=== PATIENT | male | born 1945 | race Caucasian/White ===

== ENCOUNTER 2021-01-03 20:01 | Inpatient (IN) | payer BC, MEDICARE ==
[~2021-01-03] VITALS: Ht 160 cm; Wt 70.0 kg
[~2021-01-03 20:01] MED LIST: ASPI-611 PO; BRIM5DRO16 EACHEYE; GABA-532 PO; LANTUS SUBCUT; LISI5TAB22 PO; PIOG15TA8 PO
[2021-01-03 23:10] VITALS: BP 132/52
--- NOTE | 2021-01-03 23:10 | NUR ---
Pt arrived via ambulance gurney A and Ox4, vss, on 15l nrb and 5l nc. vss, oriented to room and medication plan and covid lung positions. Dr. Nash paged for notice of arrival. Call light given to pt.
[2021-01-03] MEDS ORDERED: ondansetron/PF 4mg/2ml inj IV PRN (23:45)
[2021-01-03] MEDS: normal saline 1000ml 1,000 ML IV SCH (23:45)
[2021-01-03] MEDS ORDERED: diphenhydrAMINE 50 mg/ml inj IV PRN (23:45)
[2021-01-03] MEDS ORDERED: acetaminophen 650mg rectal suppository RC PRN (23:45)
[2021-01-03] MEDS ORDERED: mag hydrox/Alum hydrox/simeth 30ml oral suspension PO PRN (23:45)
[2021-01-03] MEDS ORDERED: morphine 2 MG/ML inj. syringe IV PRN ×2 (23:45)
[2021-01-03] MEDS ORDERED: diphenhydrAMINE 25mg capsule PO PRN (23:45)
[2021-01-03] MEDS ORDERED: ALBUTEROL INHALER 1 PUFF/90 MCG INHALER IH PRN (23:45)
[2021-01-03] MEDS ORDERED: HYDROcodone/acetaminophen 5mg/325mg tablet PO PRN (23:45)
[2021-01-03] MEDS ORDERED: bisacodyl 10mg suppository rectal RC PRN (23:45)
[2021-01-03] MEDS ORDERED: acetaminophen 325mg tablet PO PRN ×2 (23:45)
[2021-01-04] MEDS ORDERED: PIOG45TA65 PO (00:14)
[2021-01-04] MEDS ORDERED: CHOL20002 PO (00:14)
[2021-01-04] MEDS ORDERED: ATOR40TA72 PO (00:14)
[2021-01-04] MEDS ORDERED: GABA300C PO (00:42)
[2021-01-04] MEDS: normal saline 1000ml 1,000 ML IV SCH ×2 (01:34→09:45)
[2021-01-04 02:00] VITALS: BP 144/50
[2021-01-04 06:10] VITALS: BP 122/56
--- NOTE | 2021-01-04 06:39 | NUR ---
Report to Breanne GRAHAM.
[2021-01-04] MEDS ORDERED: pantoprazole 40mg Tablet.DR PO SCH (07:30)
[2021-01-04 07:56] LABS: COLOR,URINE YELLOW (Yellow); UA COLLECTION TYPE FOLEY CATH
[2021-01-04 07:57] LABS: CLARITY,URINE CLEAR (Clear); GLUCOSE, URINE 500 mg/dl (Neg); KETONES,URINE 15 mg/dl (Neg); LEUKOCYTE ESTERASE ,URINE NEGATIVE (Neg); NITRITES, URINE NEGATIVE (Neg); OCCULT BLOOD,URINE MODERATE (Neg); PROTEIN,URINE 30 mg/dl (Neg); UROBILINOGEN,URINE 0.2 E.U/dL (0.2-1.0)
[2021-01-04 07:58] LABS: BASOPHILS % (AUTO) 0.3 % (0-1); EOSINOPHILS % (AUTO) 0 % (0-6); HEMATOCRIT 39.4 % (42.0-52.0); HEMOGLOBIN 13.2 g/dl (14.0-17.9); LYMPHOCYTES # (AUTO) 0.5 X10'3 (1.1-4.8); MEAN CORPUSCULAR HEMOGLOBIN 30.9 PG (27.0-31.0); MEAN CORPUSCULAR HGB CONC 33.7 g/dL (33.0-36.5); MEAN CORPUSCULAR VOLUME 91.7 FL (78-98); MEAN PLATELET VOLUME 9.2 FL (7.4-10.4); MONOCYTES # (AUTO) 0.3 X10'3 (0-0.9); MONOCYTES % (AUTO) 7.7 % (2-12); NEUTROPHILS # (AUTO) 2.8 X10'3 (1.8-7.7); PLATELET COUNT 159 X10'3 (140-440); RED BLOOD COUNT 4.29 X10'6 (4.70-6.10); RED CELL DISTRIBUTION WIDTH 13.6 % (11.5-14.5); WHITE BLOOD COUNT 3.6 X10'3 (4.5-11.0)
[2021-01-04 08:06] LABS: PARTIAL THROMBOPLASTIN TIME 40 SECONDS (22-32)
[2021-01-04] MEDS ORDERED: dexamethasone sod phosphate 10mg/ml inj IV SCH (08:15)
[2021-01-04 08:16] LABS: BACTERIA,URINE 2+ /HPF (Neg); MUCUS STRANDS FEW /LPF (Neg); SQUAMOUS EPITHELIAL CELL,UR FEW /LPF (FEW); WBC,URINE 0-4 /HPF (0-4)
[2021-01-04 08:34] LABS: ALANINE AMINOTRANSFERASE 27 U/L (12-78); ALBUMIN 2.5 G/DL (3.4-5.0); ALBUMIN/GLOBULIN RATIO 0.6 (1.1-1.5); ALKALINE PHOSPHATASE 68 IU/L (46-116); ANION GAP 13 (8-16); ASPARTATE AMINO TRANSFERASE 66 U/L (10-37); BILIRUBIN,TOTAL 0.5 MG/DL (0.1-1.0); BLOOD UREA NITROGEN 48 MG/DL (7-18); BUN/CREATININE RATIO 27.4 (5.4-32.0); CALCIUM 7.6 MG/DL (8.5-10.1); CHLORIDE 107 MMOL/L (99-107); CHOL/HDL RATIO 2.1 (0.00-4.99); CHOLESTEROL 116 MG/DL (0-200); CREATININE 1.75 MG/DL (0.60-1.10); GLUCOSE 279 MG/DL (70-104); HDL CHOLESTEROL 55 MG/DL (35-60); LDL CHOLESTEROL 42 MG/DL (50-100); PHOSPHORUS 3.6 MG/DL (2.3-4.5); POTASSIUM 4.5 MMOL/L (3.5-5.1); SODIUM 140 MMOL/L (135-145); TOTAL PROTEIN 6.5 G/DL (6.4-8.2); TRIGLYCERIDES 86 MG/DL (20-135); eGFR 38 ML/MIN
[2021-01-04] MEDS: pantoprazole 40mg Tablet.DR PO SCH (08:34)
[2021-01-04] MEDS: docusate sod 100mg capsule PO SCH ×2 (08:34→20:28)
[2021-01-04] MEDS: CefTRIAXone/D5W-Rocephin 1gm 50 ML IV SCH (08:34)
[2021-01-04] MEDS: enoxaparin 30mg/0.3ml syringe SQ SCH ×2 (08:35→20:29)
[2021-01-04 09:10] LABS: HEMOGLOBIN A1C 10.3 % (4.5-6.2)
[2021-01-04] MEDS: NS IV SCH ×4 (09:28→20:34)
[2021-01-04] MEDS: DEXAMETHASONE IV SCH ×4 (09:28→20:34)
[2021-01-04 10:00] VITALS: BP 121/83
[2021-01-04] MEDS ORDERED: glucagon, human recombinant 1mg kit SUBCUT PRN (10:20)
[2021-01-04] MEDS ORDERED: MESSAGE TO PHARMACY PO ONE (10:20)
[2021-01-04] MEDS ORDERED: dextrose 50%-water 50ml dispensing syringe IV PRN ×2 (10:20)
[2021-01-04] MEDS ORDERED: dextrose ORAL solution 15 GM/59 ML bottle PO PRN (10:20)
[2021-01-04] MEDS: azithromycin/NS 500mg/250ml 250 ML IV SCH (11:40)
[2021-01-04] MEDS: insulin Lispro (HumaLOG) vial - multi-dose SQ SCH ×3 (13:31→22:15)
[2021-01-04 14:00] VITALS: BP 109/61
--- NOTE | 2021-01-04 14:14 | NUR ---
DM Consult: Pt admit DX COVID-19 hx T2DM though on no DM meds at home per EMR and pharmacy this AM. Noted Glu 267-279mg/dl to start on glycemic protocol today per RN. Pt on 15L high flow saturation 90% this AM. Would benefit from DM ed this admit once more appropriate prior to discharge. Addendum: 01/04/21 at [address] Amended: Links added. Addendum: 01/05/21 at [address] DM Consult: Pt admit DX COVID-19 hx T2DM A1C 10.3 though on no DM meds at home per EMR and pharmacy this AM. Noted Glu 267-279mg/dl to start on glycemic protocol today per RN. Pt on 15L high flow saturation 90% this AM. Would benefit from DM ed this admit once more appropriate prior to discharge.
[2021-01-04 18:00] VITALS: BP 136/63
--- NOTE | 2021-01-04 18:40 | NUR ---
C-DIFF TOXIN AND STOOL SAMPLES CANCELLED PER DR ROCK
--- NOTE | 2021-01-04 19:11 | NUR ---
patient report given to silva GRAHAM
--- NOTE | 2021-01-04 19:56 | NUR ---
spoke to Dr Nash regarding Rendesnovir hold. He states to hold until tomorrow. Dr Stauffer will address. Notified pharmacy regarding
--- NOTE | 2021-01-04 20:00 | NUR ---
PT ON HI JANEL 15L ALONG WITH NRB 15L 02 SATS MID 90S
[2021-01-04 22:00] VITALS: BP 121/83
[2021-01-04] MEDS: insulin glargine (Lantus) pen - multi-dose SQ SCH (22:12)
--- NOTE | 2021-01-04 23:18 | NUR ---
Ativan ordered as telephone order but put in per protocol, by mistake.
[2021-01-05] MEDS: LORazepam 0.5 MG tablet PO SCH ×3 (00:06→16:27)
--- NOTE | 2021-01-05 01:13 | NUR ---
PT WEANED DOWN TO 10LNRB ALONG WITH HIFLO AT 15L. O2 SATS 93%
[2021-01-05 02:00] VITALS: BP 137/65
[2021-01-05] MEDS: normal saline 1000ml 1,000 ML IV SCH ×2 (05:45→09:25)
[2021-01-05 06:10] VITALS: BP 137/60
--- NOTE | 2021-01-05 07:02 | NUR ---
Patient report received from Iván GRAHAM
[2021-01-05 07:14] LABS: BASOPHILS % (AUTO) 0.1 % (0-1); EOSINOPHILS % (AUTO) 0 % (0-6); HEMATOCRIT 39.3 % (42.0-52.0); HEMOGLOBIN 13.3 g/dl (14.0-17.9); LYMPHOCYTES # (AUTO) 0.5 X10'3 (1.1-4.8); LYMPHOCYTES % (AUTO) 7.2 % (21-51); MEAN CORPUSCULAR VOLUME 91.4 FL (78-98); MEAN PLATELET VOLUME 9.1 FL (7.4-10.4); MONOCYTES # (AUTO) 0.4 X10'3 (0-0.9); MONOCYTES % (AUTO) 6.4 % (2-12); NEUTROPHILS # (AUTO) 5.9 X10'3 (1.8-7.7); NEUTROPHILS % (AUTO) 86.3 % (42-75); PLATELET COUNT 193 X10'3 (140-440); RED CELL DISTRIBUTION WIDTH 13.8 % (11.5-14.5); WHITE BLOOD COUNT 6.9 X10'3 (4.5-11.0)
--- NOTE | 2021-01-05 07:22 | NUR ---
Report given to Danielle GRAHAM
[2021-01-05 07:23] LABS: D-DIMER 0.89 MG/L FEU (0-0.50)
--- NOTE | 2021-01-05 07:23 | NUR ---
Patient in room [facility]TH[facility] 4011. I have received report from Breanne GRAHAM and had the opportunity to ask questions and assume patient care.
[2021-01-05 07:57] LABS: ALANINE AMINOTRANSFERASE 25 U/L (12-78); ALBUMIN 2.5 G/DL (3.4-5.0); ALBUMIN/GLOBULIN RATIO 0.6 (1.1-1.5); ALKALINE PHOSPHATASE 69 IU/L (46-116); ANION GAP 13 (8-16); BILIRUBIN,TOTAL 0.5 MG/DL (0.1-1.0); BLOOD UREA NITROGEN 43 MG/DL (7-18); BUN/CREATININE RATIO 33.6 (5.4-32.0); C-REACTIVE PROTEIN 9.24 MG/DL (0.0-0.5); CALCIUM 7.8 MG/DL (8.5-10.1); CHLORIDE 110 MMOL/L (99-107); CREATININE 1.28 MG/DL (0.60-1.10); GLUCOSE 228 MG/DL (70-104); SODIUM 142 MMOL/L (135-145); TOTAL CARBON DIOXIDE 19.3 MMOL/L (24-32); TOTAL PROTEIN 6.5 G/DL (6.4-8.2); eGFR 55 ML/MIN
[2021-01-05] MEDS: docusate sod 100mg capsule PO SCH ×2 (08:00→20:00)
[2021-01-05 08:16] LABS: ASPARTATE AMINO TRANSFERASE 64 U/L (10-37); POTASSIUM 4.8 MMOL/L (3.5-5.1)
[2021-01-05] MEDS: CefTRIAXone/D5W-Rocephin 1gm 50 ML IV SCH (08:55)
[2021-01-05] MEDS: DEXAMETHASONE IV SCH ×4 (08:55→20:55)
[2021-01-05] MEDS: azithromycin/NS 500mg/250ml 250 ML IV SCH (08:55)
[2021-01-05] MEDS: enoxaparin 30mg/0.3ml syringe SQ SCH ×2 (08:55→20:56)
[2021-01-05] MEDS: NS IV SCH ×4 (08:55→20:55)
[2021-01-05] MEDS: pantoprazole 40mg Tablet.DR PO SCH (08:56)
[2021-01-05] MEDS: insulin Lispro (HumaLOG) vial - multi-dose SQ SCH ×3 (09:24→21:03)
[2021-01-05 10:00] VITALS: BP 132/56
[2021-01-05] MEDS: REMDESIVIR INJ 100 MG in normal saline 100ml IV soln 80 ML IV SCH (10:23)
--- NOTE | 2021-01-05 13:25 | NUR ---
F/u 01/05: SHANNON d/w RN who reports pt appropriate for DM ed at this time. RD attempted TC call to pt. Pt answered TC stating "hello..phone's unplugged" then stopped talking. AOX4 this AM per EMR. RD notified RN who's checked on pt. RD attempted f/u calls via TC however line remains busy for past hour. Written DM ed w/ RD contact information mailed to pt home address in EMR. Pt would benefit from verbal DM ed this admit. Addendum: 01/05/21 at [address] Amended: Links added.
[2021-01-05] MEDS: HYDROcodone/acetaminophen 10/325mg tab PO PRN ×2 (15:17→20:56)
[2021-01-05 18:00] VITALS: BP 150/63
--- NOTE | 2021-01-05 18:17 | NUR ---
Problems reprioritized. Patient report given, questions answered & plan of care reviewed with Whitney GRAHAM.
[2021-01-05] MEDS: gabapentin 300mg capsule PO SCH (20:55)
[2021-01-05] MEDS: lactobacillus rhamnosus 10,000 MMU CELLS/CAPSULE PO SCH (20:56)
[2021-01-05] MEDS: atorvastatin 20mg tablet PO SCH (20:56)
[2021-01-05] MEDS: insulin glargine (Lantus) pen - multi-dose SQ SCH (21:04)
[2021-01-05] MEDS: temazepam 15mg capsule PO PRN (21:39)
[2021-01-05 22:00] VITALS: BP 132/56
[2021-01-06] MEDS: LORazepam 0.5 MG tablet PO SCH ×4 (00:26→23:48)
[2021-01-06 02:00] VITALS: BP 117/82
--- NOTE | 2021-01-06 06:14 | NUR ---
Problems reprioritized. Patient report given, questions answered & plan of care reviewed with SANTOS Walter.
[2021-01-06 07:34] LABS: D-DIMER 1.02 MG/L FEU (0-0.50)
[2021-01-06 07:45] LABS: BASOPHILS % (AUTO) 0 % (0-1); EOSINOPHILS % (AUTO) 0 % (0-6); HEMATOCRIT 38.9 % (42.0-52.0); HEMOGLOBIN 13.3 g/dl (14.0-17.9); LYMPHOCYTES # (AUTO) 0.4 X10'3 (1.1-4.8); LYMPHOCYTES % (AUTO) 6.1 % (21-51); MEAN CORPUSCULAR HGB CONC 34.2 g/dL (33.0-36.5); MEAN CORPUSCULAR VOLUME 90.8 FL (78-98); MEAN PLATELET VOLUME 9.4 FL (7.4-10.4); MONOCYTES # (AUTO) 0.8 X10'3 (0-0.9); MONOCYTES % (AUTO) 10.6 % (2-12); NEUTROPHILS % (AUTO) 83.3 % (42-75); PLATELET COUNT 216 X10'3 (140-440); RED BLOOD COUNT 4.29 X10'6 (4.70-6.10); WHITE BLOOD COUNT 7.2 X10'3 (4.5-11.0)
[2021-01-06 07:51] LABS: ALANINE AMINOTRANSFERASE 27 U/L (12-78); ALBUMIN 2.6 G/DL (3.4-5.0); ALBUMIN/GLOBULIN RATIO 0.7 (1.1-1.5); ALKALINE PHOSPHATASE 81 IU/L (46-116); ANION GAP 13 (8-16); ASPARTATE AMINO TRANSFERASE 59 U/L (10-37); BILIRUBIN,TOTAL 0.7 MG/DL (0.1-1.0); BLOOD UREA NITROGEN 36 MG/DL (7-18); BUN/CREATININE RATIO 28.1 (5.4-32.0); C-REACTIVE PROTEIN 5.75 MG/DL (0.0-0.5); CHLORIDE 106 MMOL/L (99-107); CREATININE 1.28 MG/DL (0.60-1.10); GLUCOSE 269 MG/DL (70-104); POTASSIUM 4.7 MMOL/L (3.5-5.1); SODIUM 141 MMOL/L (135-145); TOTAL CARBON DIOXIDE 22.2 MMOL/L (24-32); TOTAL PROTEIN 6.4 G/DL (6.4-8.2); eGFR 55 ML/MIN
[2021-01-06 10:03] VITALS: BP 142/67
[2021-01-06] MEDS: DEXAMETHASONE IV SCH ×4 (12:01→19:18)
[2021-01-06] MEDS: CefTRIAXone/D5W-Rocephin 1gm 50 ML IV SCH (12:01)
[2021-01-06] MEDS: NS IV SCH ×4 (12:01→19:18)
[2021-01-06] MEDS: REMDESIVIR INJ 100 MG in normal saline 100ml IV soln 80 ML IV SCH (12:02)
[2021-01-06] MEDS: pantoprazole 40mg Tablet.DR PO SCH (12:37)
[2021-01-06] MEDS: docusate sod 100mg capsule PO SCH ×2 (12:38→19:17)
[2021-01-06] MEDS: gabapentin 300mg capsule PO SCH ×3 (12:39→19:21)
[2021-01-06] MEDS: lactobacillus rhamnosus 10,000 MMU CELLS/CAPSULE PO SCH ×2 (12:39→19:17)
[2021-01-06] MEDS: lisinopril 5mg tablet PO SCH (12:40)
[2021-01-06] MEDS: cholecalciferol (vitamin D3) 1,000 unit (25mcg) tablet PO SCH (12:40)
[2021-01-06] MEDS: aspirin 81mg, enteric-coated 1 TAB TABLET.DR PO SCH (12:59)
[2021-01-06] MEDS: enoxaparin 30mg/0.3ml syringe SQ SCH ×2 (12:59→19:17)
[2021-01-06] MEDS: insulin Lispro (HumaLOG) vial - multi-dose SQ SCH ×2 (13:30→19:25)
[2021-01-06 18:00] VITALS: BP 119/54
--- NOTE | 2021-01-06 18:15 | NUR ---
Patient in room [facility]TH[facility] 4011. I have received report from SANTOS Walter and had the opportunity to ask questions and assume patient care.
[2021-01-06] MEDS: atorvastatin 20mg tablet PO SCH (19:20)
[2021-01-06] MEDS: insulin glargine (Lantus) pen - multi-dose SQ SCH (21:09)
[2021-01-06 22:00] VITALS: BP 106/43
[2021-01-07 02:00] VITALS: BP 129/55
[2021-01-07 06:00] VITALS: BP 126/54
--- NOTE | 2021-01-07 06:15 | NUR ---
Problems reprioritized. Patient report given, questions answered & plan of care reviewed with SANTOS Walter.
[2021-01-07] MEDS: LORazepam 0.5 MG tablet PO SCH ×2 (08:00→15:18)
[2021-01-07 08:17] LABS: BASOPHILS % (AUTO) 0.1 % (0-1); EOSINOPHILS % (AUTO) 0 % (0-6); HEMATOCRIT 41.6 % (42.0-52.0); HEMOGLOBIN 14.3 g/dl (14.0-17.9); LYMPHOCYTES # (AUTO) 0.4 X10'3 (1.1-4.8); MEAN CORPUSCULAR HEMOGLOBIN 31.3 PG (27.0-31.0); MEAN CORPUSCULAR HGB CONC 34.5 g/dL (33.0-36.5); MEAN CORPUSCULAR VOLUME 90.8 FL (78-98); MEAN PLATELET VOLUME 9.3 FL (7.4-10.4); MONOCYTES % (AUTO) 10.9 % (2-12); NEUTROPHILS # (AUTO) 7.4 X10'3 (1.8-7.7); PLATELET COUNT 243 X10'3 (140-440); RED BLOOD COUNT 4.58 X10'6 (4.70-6.10); RED CELL DISTRIBUTION WIDTH 13.4 % (11.5-14.5); WHITE BLOOD COUNT 8.9 X10'3 (4.5-11.0)
[2021-01-07 08:53] LABS: ALANINE AMINOTRANSFERASE 29 U/L (12-78); ALBUMIN 2.5 G/DL (3.4-5.0); ALBUMIN/GLOBULIN RATIO 0.6 (1.1-1.5); ALKALINE PHOSPHATASE 94 IU/L (46-116); ANION GAP 10 (8-16); ASPARTATE AMINO TRANSFERASE 54 U/L (10-37); BLOOD UREA NITROGEN 32 MG/DL (7-18); BUN/CREATININE RATIO 26.2 (5.4-32.0); CALCIUM 7.8 MG/DL (8.5-10.1); CHLORIDE 105 MMOL/L (99-107); CREATININE 1.22 MG/DL (0.60-1.10); GLUCOSE 240 MG/DL (70-104); POTASSIUM 4.8 MMOL/L (3.5-5.1); SODIUM 140 MMOL/L (135-145); TOTAL CARBON DIOXIDE 25.4 MMOL/L (24-32); TOTAL PROTEIN 6.8 G/DL (6.4-8.2); eGFR 58 ML/MIN
[2021-01-07 10:00] VITALS: BP 139/60
[2021-01-07] MEDS: insulin Lispro (HumaLOG) vial - multi-dose SQ SCH ×3 (10:41→18:47)
[2021-01-07] MEDS: enoxaparin 30mg/0.3ml syringe SQ SCH ×2 (11:07→19:38)
[2021-01-07] MEDS: NS IV SCH ×4 (11:08→19:38)
[2021-01-07] MEDS: DEXAMETHASONE IV SCH ×4 (11:08→19:38)
[2021-01-07] MEDS: REMDESIVIR INJ 100 MG in normal saline 100ml IV soln 80 ML IV SCH (11:08)
[2021-01-07] MEDS: CefTRIAXone/D5W-Rocephin 1gm 50 ML IV SCH (11:08)
[2021-01-07] MEDS: pantoprazole 40mg Tablet.DR PO SCH (11:36)
[2021-01-07] MEDS: cholecalciferol (vitamin D3) 1,000 unit (25mcg) tablet PO SCH (11:36)
[2021-01-07] MEDS: gabapentin 300mg capsule PO SCH ×3 (11:36→19:37)
[2021-01-07] MEDS: docusate sod 100mg capsule PO SCH ×2 (11:36→19:37)
[2021-01-07] MEDS: lactobacillus rhamnosus 10,000 MMU CELLS/CAPSULE PO SCH ×2 (11:36→19:37)
[2021-01-07] MEDS: aspirin 81mg, enteric-coated 1 TAB TABLET.DR PO SCH (11:36)
[2021-01-07] MEDS: lisinopril 5mg tablet PO SCH (11:37)
[2021-01-07 14:00] VITALS: BP 124/65
--- NOTE | 2021-01-07 15:56 | NUR ---
Initial: Pt admit DX acute hypoxemic respiratory failure, COVID-19, TEJ, and acute encephalopathy per EMR. Hx T2DM A1C 10.3% though takes no home meds per EMR. PO 25-50% first meals 01/04 however no meal documentation since past 2.5 days; new nutrition intake intervention added by SHANNON in EMR. Noted pt remains confused AOx2 on 15L HFNC per EMR. ALOC and respiratory status likely to impact PO trends. Will recommend Glucerna TIDWM to ensure protein/kcal needs meet. DM ed deferred until more appropriate. LBM 01/05 receiving routine colace. Will monitor for PO trends and ONS adjustments as needed. Rec: 1. continue carb controlled diet; encourage PO 2. Glucerna TIDWM; pending MD verification in EMR 3. routine bowel care 4. scaled wt this admit; subsequent weekly wts 5. DM ed once more appropriate this admit; hx T2DM A1C 10.3% on no meds at home per EMR Addendum: 01/07/21 at [address] Amended: Links added.
[2021-01-07 18:00] VITALS: BP 106/61
--- NOTE | 2021-01-07 18:27 | NUR ---
Patient in room [facility]TH[facility] 4011. I have received report from SANTOS Walter and had the opportunity to ask questions and assume patient care.
[2021-01-07] MEDS: atorvastatin 20mg tablet PO SCH (19:37)
[2021-01-07] MEDS: insulin glargine (Lantus) pen - multi-dose SQ SCH (20:50)
[2021-01-07 22:00] VITALS: BP 113/65
[2021-01-07] MEDS: temazepam 15mg capsule PO PRN (22:16)
[2021-01-08 02:00] VITALS: BP 138/68
[2021-01-08 06:00] VITALS: BP 137/66
--- NOTE | 2021-01-08 06:15 | NUR ---
Problems reprioritized. Patient report given, questions answered & plan of care reviewed with SANTOS Walter.
[2021-01-08 08:26] LABS: BASOPHILS % (AUTO) 0.4 % (0-1); EOSINOPHILS % (AUTO) 0 % (0-6); HEMATOCRIT 43.1 % (42.0-52.0); HEMOGLOBIN 14.7 g/dl (14.0-17.9); LYMPHOCYTES # (AUTO) 0.5 X10'3 (1.1-4.8); LYMPHOCYTES % (AUTO) 4.5 % (21-51); MEAN CORPUSCULAR HEMOGLOBIN 30.8 PG (27.0-31.0); MEAN CORPUSCULAR HGB CONC 34.1 g/dL (33.0-36.5); MEAN CORPUSCULAR VOLUME 90.1 FL (78-98); MONOCYTES # (AUTO) 0.8 X10'3 (0-0.9); MONOCYTES % (AUTO) 7.3 % (2-12); NEUTROPHILS % (AUTO) 87.8 % (42-75); PLATELET COUNT 250 X10'3 (140-440); RED BLOOD COUNT 4.78 X10'6 (4.70-6.10); RED CELL DISTRIBUTION WIDTH 13.4 % (11.5-14.5); WHITE BLOOD COUNT 10.3 X10'3 (4.5-11.0)
[2021-01-08 08:59] LABS: ALANINE AMINOTRANSFERASE 28 U/L (12-78); ALBUMIN 2.8 G/DL (3.4-5.0); ALBUMIN/GLOBULIN RATIO 0.7 (1.1-1.5); ALKALINE PHOSPHATASE 116 IU/L (46-116); ANION GAP 7 (8-16); ASPARTATE AMINO TRANSFERASE 51 U/L (10-37); BILIRUBIN,TOTAL 1.1 MG/DL (0.1-1.0); BLOOD UREA NITROGEN 31 MG/DL (7-18); BUN/CREATININE RATIO 25.6 (5.4-32.0); CALCIUM 8.9 MG/DL (8.5-10.1); CHLORIDE 106 MMOL/L (99-107); CREATININE 1.21 MG/DL (0.60-1.10); GLUCOSE 147 MG/DL (70-104); POTASSIUM 5.3 MMOL/L (3.5-5.1); SODIUM 143 MMOL/L (135-145); TOTAL CARBON DIOXIDE 29.6 MMOL/L (24-32); TOTAL PROTEIN 7.1 G/DL (6.4-8.2); eGFR 59 ML/MIN
[2021-01-08 10:00] VITALS: BP 135/82
[2021-01-08] MEDS: lactobacillus rhamnosus 10,000 MMU CELLS/CAPSULE PO SCH ×2 (10:51→20:30)
[2021-01-08] MEDS: aspirin 81mg, enteric-coated 1 TAB TABLET.DR PO SCH (10:51)
[2021-01-08] MEDS: docusate sod 100mg capsule PO SCH ×2 (10:51→20:29)
[2021-01-08] MEDS: gabapentin 300mg capsule PO SCH ×3 (10:51→20:30)
[2021-01-08] MEDS: pantoprazole 40mg Tablet.DR PO SCH (10:51)
[2021-01-08] MEDS: LORazepam 0.5 MG tablet PO SCH ×3 (10:51→17:16)
[2021-01-08] MEDS: REMDESIVIR INJ 100 MG in normal saline 100ml IV soln 80 ML IV SCH (10:52)
[2021-01-08] MEDS: DEXAMETHASONE IV SCH ×4 (10:52→20:30)
[2021-01-08] MEDS: NS IV SCH ×4 (10:52→20:30)
[2021-01-08] MEDS: lisinopril 5mg tablet PO SCH (10:52)
[2021-01-08] MEDS: CefTRIAXone/D5W-Rocephin 1gm 50 ML IV SCH (10:53)
[2021-01-08] MEDS: enoxaparin 30mg/0.3ml syringe SQ SCH ×2 (11:26→20:30)
[2021-01-08 14:00] VITALS: BP 128/66
[2021-01-08] MEDS: cholecalciferol (vitamin D3) 1,000 unit (25mcg) tablet PO SCH (14:03)
[2021-01-08 18:00] VITALS: BP 139/68
--- NOTE | 2021-01-08 18:00 | NUR ---
wearing 15 liters HF/ 15 liters via NRB mask Addendum: 01/08/21 at 4 by Maryjane Palafox RN Amended: Links added.
--- NOTE | 2021-01-08 18:37 | NUR ---
Patient in room [facility]TH[facility] 4011. I have received report from Dl GRAHAM and had the opportunity to ask questions and assume patient care.
[2021-01-08] MEDS: insulin Lispro (HumaLOG) vial - multi-dose SQ SCH ×2 (18:53→19:05)
[2021-01-08] MEDS: atorvastatin 20mg tablet PO SCH (20:30)
[2021-01-08] MEDS: insulin glargine (Lantus) pen - multi-dose SQ SCH (21:20)
[2021-01-08 22:00] VITALS: BP 133/68
[2021-01-09] MEDS: LORazepam 0.5 MG tablet PO SCH ×4 (00:01→23:51)
[2021-01-09 02:00] VITALS: BP 139/48
[2021-01-09 06:00] VITALS: BP 116/64
--- NOTE | 2021-01-09 06:00 | NUR ---
on 15 liters nrb and 15liters high flow oxygen Addendum: 01/09/21 at 0645 by Maryjane Palafox RN Amended: Links added.
--- NOTE | 2021-01-09 06:47 | NUR ---
Problems reprioritized. Patient report given, questions answered & plan of care reviewed with Gracie GRAHAM.
[2021-01-09 06:56] LABS: MEAN CORPUSCULAR HEMOGLOBIN 30.4 PG (27.0-31.0); MEAN CORPUSCULAR HGB CONC 33.5 g/dL (33.0-36.5)
[2021-01-09 06:57] LABS: ALBUMIN 2.6 G/DL (3.4-5.0); ANION GAP 7 (8-16); BLOOD UREA NITROGEN 33 MG/DL (7-18); BUN/CREATININE RATIO 28.7 (5.4-32.0); CALCIUM 8.8 MG/DL (8.5-10.1); CHLORIDE 108 MMOL/L (99-107); CREATININE 1.15 MG/DL (0.60-1.10); GLUCOSE 121 MG/DL (70-104); HEMATOCRIT 43.6 % (42.0-52.0); HEMOGLOBIN 14.6 g/dl (14.0-17.9); MEAN CORPUSCULAR VOLUME 90.7 FL (78-98); MEAN PLATELET VOLUME 9.1 FL (7.4-10.4); PLATELET COUNT 256 X10'3 (140-440); RED CELL DISTRIBUTION WIDTH 13.8 % (11.5-14.5); SODIUM 141 MMOL/L (135-145); TOTAL CARBON DIOXIDE 26.1 MMOL/L (24-32); WHITE BLOOD COUNT 12.5 X10'3 (4.5-11.0); eGFR 62 ML/MIN
[2021-01-09 06:58] LABS: POTASSIUM 4.5 MMOL/L (3.5-5.1)
[2021-01-09 07:04] LABS: D-DIMER 2.24 MG/L FEU (0-0.50)
[2021-01-09 07:38] LABS: BURR CELLS 1+; PLATELET ESTIMATE NORMAL; ROULEAUX 1+; TOTAL CELLS COUNTED 100
[2021-01-09] MEDS: dexamethasone inj 6 MG in dextrose 5%-water 100 ML IV SCH ×2 (09:26→19:22)
[2021-01-09] MEDS: pantoprazole 40mg Tablet.DR PO SCH (09:26)
[2021-01-09] MEDS: docusate sod 100mg capsule PO SCH ×2 (09:27→19:22)
[2021-01-09] MEDS: aspirin 81mg, enteric-coated 1 TAB TABLET.DR PO SCH (09:27)
[2021-01-09] MEDS: lactobacillus rhamnosus 10,000 MMU CELLS/CAPSULE PO SCH ×2 (09:27→19:22)
[2021-01-09] MEDS: cholecalciferol (vitamin D3) 1,000 unit (25mcg) tablet PO SCH (09:28)
[2021-01-09] MEDS: gabapentin 300mg capsule PO SCH ×3 (09:28→19:22)
[2021-01-09] MEDS: enoxaparin 30mg/0.3ml syringe SQ SCH ×2 (09:29→19:23)
[2021-01-09] MEDS: lisinopril 5mg tablet PO SCH (09:29)
[2021-01-09] MEDS: CefTRIAXone/D5W-Rocephin 1gm 50 ML IV SCH (10:31)
[2021-01-09] MEDS: insulin Lispro (HumaLOG) vial - multi-dose SQ SCH ×2 (14:37→18:55)
[2021-01-09 18:00] VITALS: BP 86/65
[2021-01-09] MEDS: atorvastatin 20mg tablet PO SCH (19:23)
[2021-01-09 21:24] LABS: C-REACTIVE PROTEIN 10.21 MG/DL (0.0-0.5)
[2021-01-09] MEDS: insulin glargine (Lantus) pen - multi-dose SQ SCH (21:27)
[2021-01-09 22:00] VITALS: BP 106/54
[2021-01-10 02:00] VITALS: BP 108/61
[2021-01-10] MEDS: temazepam 15mg capsule PO PRN (02:23)
[2021-01-10 06:00] VITALS: BP 101/62
--- NOTE | 2021-01-10 06:26 | NUR ---
Problems reprioritized. Patient report given, questions answered & plan of care reviewed with SANTOS Bowman.
[2021-01-10 06:55] LABS: BASOPHILS % (AUTO) 0.2 % (0-1); EOSINOPHILS % (AUTO) 0 % (0-6); HEMOGLOBIN 14.3 g/dl (14.0-17.9); LYMPHOCYTES # (AUTO) 0.5 X10'3 (1.1-4.8); LYMPHOCYTES % (AUTO) 5.1 % (21-51); MEAN CORPUSCULAR HEMOGLOBIN 30.8 PG (27.0-31.0); MEAN CORPUSCULAR HGB CONC 33.4 g/dL (33.0-36.5); MEAN CORPUSCULAR VOLUME 92.4 FL (78-98); MONOCYTES # (AUTO) 0.3 X10'3 (0-0.9); MONOCYTES % (AUTO) 2.9 % (2-12); NEUTROPHILS # (AUTO) 8.9 X10'3 (1.8-7.7); NEUTROPHILS % (AUTO) 91.8 % (42-75); PLATELET COUNT 204 X10'3 (140-440); RED BLOOD COUNT 4.65 X10'6 (4.70-6.10); RED CELL DISTRIBUTION WIDTH 13.8 % (11.5-14.5); WHITE BLOOD COUNT 9.7 X10'3 (4.5-11.0)
[2021-01-10 07:11] LABS: D-DIMER 2.35 MG/L FEU (0-0.50)
[2021-01-10 07:24] LABS: ALBUMIN 2.4 G/DL (3.4-5.0); ANION GAP 11 (8-16); BLOOD UREA NITROGEN 44 MG/DL (7-18); BUN/CREATININE RATIO 34.6 (5.4-32.0); CALCIUM 8.4 MG/DL (8.5-10.1); CHLORIDE 105 MMOL/L (99-107); CREATININE 1.27 MG/DL (0.60-1.10); GLUCOSE 203 MG/DL (70-104); SODIUM 139 MMOL/L (135-145); TOTAL CARBON DIOXIDE 22.9 MMOL/L (24-32); eGFR 55 ML/MIN
[2021-01-10 07:27] LABS: POTASSIUM 4.9 MMOL/L (3.5-5.1)
--- NOTE | 2021-01-10 08:24 | NUR ---
PAGER ID: [phone] MESSAGE: [id number] May he was restrained this am. ok now, own maybe? just want you to know. Gracie [phone]
[2021-01-10] MEDS: insulin Lispro (HumaLOG) vial - multi-dose SQ SCH ×3 (09:32→19:33)
[2021-01-10] MEDS: enoxaparin 30mg/0.3ml syringe SQ SCH ×2 (09:44→21:32)
[2021-01-10] MEDS: methylPREDNISolone sod succ/PF 40mg inj. IV SCH ×2 (09:44→21:49)
[2021-01-10] MEDS: aspirin 81mg, enteric-coated 1 TAB TABLET.DR PO SCH (09:45)
[2021-01-10] MEDS: pantoprazole 40mg Tablet.DR PO SCH (09:45)
[2021-01-10] MEDS: cholecalciferol (vitamin D3) 1,000 unit (25mcg) tablet PO SCH (09:45)
[2021-01-10] MEDS: lactobacillus rhamnosus 10,000 MMU CELLS/CAPSULE PO SCH ×2 (09:45→20:00)
[2021-01-10] MEDS: docusate sod 100mg capsule PO SCH ×2 (09:45→20:00)
[2021-01-10] MEDS: gabapentin 300mg capsule PO SCH ×3 (09:46→21:00)
[2021-01-10] MEDS: lisinopril 5mg tablet PO SCH (09:46)
[2021-01-10] MEDS: LORazepam 0.5 MG tablet PO SCH ×2 (09:46→17:57)
[2021-01-10] MEDS: CefTRIAXone/D5W-Rocephin 1gm 50 ML IV SCH (09:47)
[2021-01-10 10:00] VITALS: BP 118/52
--- NOTE | 2021-01-10 12:31 | NUR ---
Reassessment: Pt PO remains poor 0-25% avg carb controlled meals not meeting needs. Noted currently on 65L HFNC w/ 15L NRB and 85% SPO2 in addition to confusion in restraints per EMR. Respiratory status and ALOC likely impacting PO trends. RD d/w RN regarding day 6 poor nutrition intake. RN reports pt likely to drink ONS w/ Ensure Enlive TIDWM now ordered in EMR and pt has been eating yet PO not documented. RN reports will d/w aids to ensure PO documentation; so far missing 2.5 days of PO documentation. SHANNON d/w RN if poor PO persists would benefit from NG nutrition to meet needs. LBM 01/07 receiving routine colace. Will continue to monitor for PO/ONS trends and additional nutrition intervention needs this admit. Rec: 1. liberalize to regular diet given documented PO hx; encourage PO. Assistance w/ meals given restraints 2. Ensure Enlive TIDWM per MD; encourage PO 3. routine bowel care 4. scaled wt this admit; subsequent weekly wts 5. IF poor PO persists consider NG nutrition to optimize nutrition status this admit. IF TF Glucerna 1.2 at 55ml/hr goal 6. DM ed once more appropriate this admit; hx T2DM A1C 10.3% on no meds at home per EMR Addendum: 01/10/21 at [address] Amended: Links added.
[2021-01-10] MEDS ORDERED: lactose-reduced food (Ensure Enlive) - 237ml bottle PO SCH (13:00)
[2021-01-10 13:29] LABS: C-REACTIVE PROTEIN 14.56 MG/DL (0.0-0.5)
[2021-01-10 14:00] VITALS: BP 94/45
[2021-01-10] MEDS: atorvastatin 20mg tablet PO SCH (21:00)
[2021-01-10] MEDS: insulin glargine (Lantus) pen - multi-dose SQ SCH (21:31)
[2021-01-11 06:00] VITALS: BP 113/57
[2021-01-11 06:50] LABS: EOSINOPHILS % (AUTO) 0 % (0-6); HEMOGLOBIN 13.7 g/dl (14.0-17.9); LYMPHOCYTES # (AUTO) 0.3 X10'3 (1.1-4.8); MEAN PLATELET VOLUME 9.5 FL (7.4-10.4); MONOCYTES # (AUTO) 0.3 X10'3 (0-0.9); NEUTROPHILS # (AUTO) 11.9 X10'3 (1.8-7.7); RED CELL DISTRIBUTION WIDTH 13.6 % (11.5-14.5); WHITE BLOOD COUNT 12.5 X10'3 (4.5-11.0)
[2021-01-11 06:52] LABS: BASOPHILS % (AUTO) 0.4 % (0-1); HEMATOCRIT 40.4 % (42.0-52.0); MEAN CORPUSCULAR HEMOGLOBIN 30.7 PG (27.0-31.0); MEAN CORPUSCULAR HGB CONC 33.8 g/dL (33.0-36.5); MEAN CORPUSCULAR VOLUME 90.9 FL (78-98); MONOCYTES % (AUTO) 2.5 % (2-12); NEUTROPHILS % (AUTO) 95.1 % (42-75); PLATELET COUNT 264 X10'3 (140-440); RED BLOOD COUNT 4.45 X10'6 (4.70-6.10)
[2021-01-11 06:55] LABS: D-DIMER 3.21 MG/L FEU (0-0.50)
[2021-01-11] MEDS: pantoprazole 40mg Tablet.DR PO SCH (07:30)
[2021-01-11 07:31] LABS: ALBUMIN 2.5 G/DL (3.4-5.0); ANION GAP 8 (8-16); BLOOD UREA NITROGEN 50 MG/DL (7-18); BUN/CREATININE RATIO 35.7 (5.4-32.0); C-REACTIVE PROTEIN 8.05 MG/DL (0.0-0.5); CALCIUM 8.8 MG/DL (8.5-10.1); CHLORIDE 107 MMOL/L (99-107); GLUCOSE 175 MG/DL (70-104); POTASSIUM 4.5 MMOL/L (3.5-5.1); SODIUM 141 MMOL/L (135-145); eGFR 50 ML/MIN
[2021-01-11] MEDS: gabapentin 300mg capsule PO SCH ×3 (08:57→22:35)
[2021-01-11] MEDS: cholecalciferol (vitamin D3) 1,000 unit (25mcg) tablet PO SCH (08:57)
[2021-01-11] MEDS: LORazepam 0.5 MG tablet PO SCH ×3 (08:57→16:17)
[2021-01-11] MEDS: aspirin 81mg, enteric-coated 1 TAB TABLET.DR PO SCH (08:58)
[2021-01-11] MEDS: lisinopril 5mg tablet PO SCH (08:58)
[2021-01-11] MEDS: lactobacillus rhamnosus 10,000 MMU CELLS/CAPSULE PO SCH ×2 (08:58→20:00)
[2021-01-11] MEDS: methylPREDNISolone sod succ/PF 40mg inj. IV SCH ×2 (08:58→22:00)
[2021-01-11] MEDS: docusate sod 100mg capsule PO SCH ×2 (08:58→20:00)
[2021-01-11] MEDS: enoxaparin 30mg/0.3ml syringe SQ SCH ×2 (08:58→22:01)
[2021-01-11] MEDS: insulin Lispro (HumaLOG) vial - multi-dose SQ SCH ×2 (09:39→19:05)
[2021-01-11 10:00] VITALS: BP 108/56
[2021-01-11] MEDS: CefTRIAXone/D5W-Rocephin 1gm 50 ML IV SCH (13:00)
[2021-01-11 14:00] VITALS: BP 108/55
--- NOTE | 2021-01-11 14:10 | NUR ---
PAGER ID: [phone] MESSAGE: Dr. Ignacio for patient Barrie Olvera, his sats are 79 to 81% on 60L HF at 100% and 15L NRB. RT wants to know do you want to start bi-pap or c-pap or talk to family. Thank you, Breanne [phone] Addendum: 01/11/21 at 1414 by Liza Mendez RN Dr. Ignacio called said he was not able to get in contact with Mauro Bethea yet, but okay to start patient on Bi-pap/C-pap.
[2021-01-11 18:30] VITALS: BP 118/62
[2021-01-11] MEDS: atorvastatin 20mg tablet PO SCH (21:00)
[2021-01-11 22:00] VITALS: BP 95/60
[2021-01-11] MEDS: insulin glargine (Lantus) pen - multi-dose SQ SCH (22:03)
[2021-01-12] MEDS: LORazepam 2 mg/ml vial IV SCH ×4 (00:26→22:59)
[2021-01-12 02:00] VITALS: BP 97/40
[2021-01-12] MEDS: normal saline 1000ml 1,000 ML IV SCH (04:19)
[2021-01-12 06:00] VITALS: BP 115/56
[2021-01-12 07:13] LABS: BASOPHILS % (AUTO) 0 % (0-1); EOSINOPHILS % (AUTO) 0.1 % (0-6); HEMATOCRIT 41.4 % (42.0-52.0); LYMPHOCYTES # (AUTO) 0.2 X10'3 (1.1-4.8); LYMPHOCYTES % (AUTO) 2.7 % (21-51); MEAN CORPUSCULAR HEMOGLOBIN 30.8 PG (27.0-31.0); MEAN CORPUSCULAR HGB CONC 33.9 g/dL (33.0-36.5); MEAN CORPUSCULAR VOLUME 90.9 FL (78-98); MEAN PLATELET VOLUME 9.7 FL (7.4-10.4); MONOCYTES # (AUTO) 0.3 X10'3 (0-0.9); MONOCYTES % (AUTO) 4.3 % (2-12); NEUTROPHILS # (AUTO) 7.4 X10'3 (1.8-7.7); NEUTROPHILS % (AUTO) 92.9 % (42-75); PLATELET COUNT 306 X10'3 (140-440); RED BLOOD COUNT 4.56 X10'6 (4.70-6.10); RED CELL DISTRIBUTION WIDTH 13.8 % (11.5-14.5)
[2021-01-12 07:34] LABS: ALBUMIN 2.4 G/DL (3.4-5.0); ANION GAP 8 (8-16); BLOOD UREA NITROGEN 55 MG/DL (7-18); BUN/CREATININE RATIO 36.4 (5.4-32.0); C-REACTIVE PROTEIN 12.04 MG/DL (0.0-0.5); CALCIUM 9.3 MG/DL (8.5-10.1); CHLORIDE 109 MMOL/L (99-107); CREATININE 1.51 MG/DL (0.60-1.10); GLUCOSE 131 MG/DL (70-104); POTASSIUM 5.2 MMOL/L (3.5-5.1); SODIUM 146 MMOL/L (135-145); TOTAL CARBON DIOXIDE 28.8 MMOL/L (24-32); eGFR 45 ML/MIN
[2021-01-12] MEDS: gabapentin 300mg capsule PO SCH ×3 (08:22→20:16)
[2021-01-12] MEDS: lisinopril 5mg tablet PO SCH (08:22)
[2021-01-12] MEDS: docusate sod 100mg capsule PO SCH ×2 (08:22→20:16)
[2021-01-12] MEDS: methylPREDNISolone sod succ/PF 40mg inj. IV SCH ×2 (08:22→20:15)
[2021-01-12] MEDS: pantoprazole 40mg Tablet.DR PO SCH (08:22)
[2021-01-12] MEDS: cholecalciferol (vitamin D3) 1,000 unit (25mcg) tablet PO SCH (08:22)
[2021-01-12] MEDS: lactobacillus rhamnosus 10,000 MMU CELLS/CAPSULE PO SCH ×2 (08:22→20:16)
[2021-01-12] MEDS: aspirin 81mg, enteric-coated 1 TAB TABLET.DR PO SCH (08:22)
[2021-01-12] MEDS: enoxaparin 30mg/0.3ml syringe SQ SCH ×2 (08:23→20:16)
[2021-01-12 10:00] VITALS: BP 104/59
[2021-01-12 10:15] LABS: D-DIMER 5.95 MG/L FEU (0-0.50)
[2021-01-12 18:00] VITALS: BP 118/62
[2021-01-12] MEDS: atorvastatin 20mg tablet PO SCH (20:16)
[2021-01-12] MEDS: insulin Lispro (HumaLOG) vial - multi-dose SQ SCH (20:24)
[2021-01-12] MEDS: insulin glargine (Lantus) pen - multi-dose SQ SCH (21:32)
[2021-01-12 22:00] VITALS: BP 124/62
[2021-01-13] MEDS: normal saline 1000ml 1,000 ML IV SCH ×2 (00:20→17:06)
[2021-01-13 02:00] VITALS: BP 116/58
[2021-01-13 06:00] VITALS: BP 99/53
--- NOTE | 2021-01-13 07:16 | NUR ---
Patient in room [facility]TH[facility] 4011. I have received report from SANTOS Minor and had the opportunity to ask questions and assume patient care.
[2021-01-13 07:47] LABS: ALBUMIN 2.1 G/DL (3.4-5.0); ANION GAP 3 (8-16); BLOOD UREA NITROGEN 55 MG/DL (7-18); BUN/CREATININE RATIO 38.5 (5.4-32.0); C-REACTIVE PROTEIN 11.48 MG/DL (0.0-0.5); CHLORIDE 109 MMOL/L (99-107); CREATININE 1.43 MG/DL (0.60-1.10); GLUCOSE 132 MG/DL (70-104); POTASSIUM 5.1 MMOL/L (3.5-5.1); SODIUM 141 MMOL/L (135-145); TOTAL CARBON DIOXIDE 28.9 MMOL/L (24-32); eGFR 48 ML/MIN
[2021-01-13 07:51] LABS: D-DIMER 4.35 MG/L FEU (0-0.50)
[2021-01-13] MEDS: LORazepam 2 mg/ml vial IV SCH ×2 (09:08→16:11)
[2021-01-13] MEDS: methylPREDNISolone sod succ/PF 40mg inj. IV SCH ×2 (09:08→19:28)
[2021-01-13] MEDS: cholecalciferol (vitamin D3) 1,000 unit (25mcg) tablet PO SCH (09:08)
[2021-01-13] MEDS: pantoprazole 40mg Tablet.DR PO SCH (09:09)
[2021-01-13] MEDS: docusate sod 100mg capsule PO SCH ×2 (09:09→21:19)
[2021-01-13] MEDS: lactobacillus rhamnosus 10,000 MMU CELLS/CAPSULE PO SCH ×2 (09:09→21:19)
[2021-01-13] MEDS: gabapentin 300mg capsule PO SCH ×3 (09:09→21:19)
[2021-01-13] MEDS: aspirin 81mg, enteric-coated 1 TAB TABLET.DR PO SCH (09:09)
[2021-01-13] MEDS: enoxaparin 30mg/0.3ml syringe SQ SCH ×2 (09:10→19:28)
[2021-01-13] MEDS: lisinopril 5mg tablet PO SCH (09:10)
[2021-01-13 10:00] VITALS: BP 122/55
[2021-01-13] MEDS: lactose-reduced food (Ensure Enlive) - 237ml bottle PO SCH ×3 (10:12→18:01)
--- NOTE | 2021-01-13 12:20 | NUR ---
Reassessment: Pt now on BiPAP and continues w/ mostly 0% intake of meals on CCHO diet. No ONS documented but RN states pt did not consume it this morning. D/w RN that pt may benefit from TF at this time given 9 days poor nutrition if within plan of care. LBM /. Given mostly 0% intake for 9 days and mild decrease in muscle strength pt meets minimum criteria for severe malnutrition, MD notified. Will continue to monitor for PO/ONS trends and additional nutrition intervention needs this admit. Rec: 1. liberalize to regular diet given documented PO hx; encourage PO. Assistance w/ meals given restraints 2. Ensure Enlive TIDWM per MD; encourage PO 3. routine bowel care 4. scaled wt this admit; subsequent weekly wts 5. IF poor PO persists consider NG nutrition to optimize nutrition status this admit. IF TF Glucerna 1.2 at 55ml/hr goal 6. DM ed once more appropriate this admit; hx T2DM A1C 10.3% on no meds at home per EMR Addendum: 01/13/21 at [address] Amended: Links added.
[2021-01-13 14:00] VITALS: BP 114/60
[2021-01-13 18:00] VITALS: BP 115/61
--- NOTE | 2021-01-13 18:21 | NUR ---
Problems reprioritized. Patient report given, questions answered & plan of care reviewed with SANTOS Dodd.
--- NOTE | 2021-01-13 18:30 | NUR ---
Patient in room [facility] 4011. I have received report from Mamta GRAHAM and had the opportunity to ask questions and assume patient care.
[2021-01-13] MEDS: insulin Lispro (HumaLOG) vial - multi-dose SQ SCH (19:28)
--- NOTE | 2021-01-13 20:45 | NUR ---
Helped pt reposition, was able to help pt drink 75% of his Ensure. Also drank two cups of water. Pt was able to take his PO meds with some yogurt as well. No difficulties swallowing.
[2021-01-13] MEDS: atorvastatin 20mg tablet PO SCH (21:20)
[2021-01-13] MEDS: insulin glargine (Lantus) pen - multi-dose SQ SCH (21:35)
--- NOTE | 2021-01-13 21:36 | NUR ---
Pts Lantus dose should have been decreased last night by 10% per protocol due to pt having a low blood sugar of 68. Decreased it tonight from 29 units to 26 units per protocol.
[2021-01-13 22:00] VITALS: BP 118/61
[2021-01-14] MEDS: LORazepam 2 mg/ml vial IV SCH
[2021-01-14 02:00] VITALS: BP 123/58
--- NOTE | 2021-01-14 02:48 | NUR ---
PT C/O left arm pain and chest pain. IV in upper left arm, but running without distress. pt states chest hurts more with deep breath as well. Dr. Molina ok'd EKG for chest pain - and no changes in EKG. norco given for pain. SANTOS Dodd will cont. to monitor.
[2021-01-14] MEDS: HYDROcodone/acetaminophen 10/325mg tab PO PRN (02:49)
[2021-01-14] MEDS ORDERED: LORazepam 2 mg/ml vial IV PRN (03:20)
[2021-01-14 06:00] VITALS: BP 138/66
--- NOTE | 2021-01-14 06:32 | NUR ---
Problems reprioritized. Patient report given, questions answered & plan of care reviewed with Mamta GRAHAM.
--- NOTE | 2021-01-14 06:43 | NUR ---
Patient in room [facility]TH[facility] 4020. I have received report from SANTOS Dodd and had the opportunity to ask questions and assume patient care.
[2021-01-14] MEDS: aspirin 81mg, enteric-coated 1 TAB TABLET.DR PO SCH (08:12)
[2021-01-14] MEDS: cholecalciferol (vitamin D3) 1,000 unit (25mcg) tablet PO SCH (08:12)
[2021-01-14] MEDS: docusate sod 100mg capsule PO SCH ×2 (08:13→19:55)
[2021-01-14] MEDS: methylPREDNISolone sod succ/PF 40mg inj. IV SCH ×2 (08:13→19:55)
[2021-01-14] MEDS: gabapentin 300mg capsule PO SCH ×3 (08:13→19:56)
[2021-01-14] MEDS: lactobacillus rhamnosus 10,000 MMU CELLS/CAPSULE PO SCH ×2 (08:13→19:55)
[2021-01-14] MEDS: pantoprazole 40mg Tablet.DR PO SCH (08:13)
[2021-01-14] MEDS: lisinopril 5mg tablet PO SCH (08:13)
[2021-01-14] MEDS: enoxaparin 30mg/0.3ml syringe SQ SCH (08:13)
[2021-01-14] MEDS: lactose-reduced food (Ensure Enlive) - 237ml bottle PO SCH ×3 (08:14→18:06)
[2021-01-14] MEDS: insulin Lispro (HumaLOG) vial - multi-dose SQ SCH ×3 (08:18→19:54)
[2021-01-14 10:00] VITALS: BP 123/63
[2021-01-14 14:00] VITALS: BP 101/52
[2021-01-14] MEDS: normal saline 1000ml 1,000 ML IV SCH (15:36)
[2021-01-14 18:00] VITALS: BP 119/68
--- NOTE | 2021-01-14 18:39 | NUR ---
Problems reprioritized. Patient report given, questions answered & plan of care reviewed with SANTOS Minor.
[2021-01-14] MEDS: atorvastatin 20mg tablet PO SCH (19:55)
[2021-01-14] MEDS ORDERED: enoxaparin 40mg/0.4ml syringe SQ SCH (20:00)
[2021-01-14] MEDS: insulin glargine (Lantus) pen - multi-dose SQ SCH (21:00)
[2021-01-14] MEDS: dextrose ORAL solution 15 GM/59 ML bottle PO PRN ×2 (21:53→22:33)
[2021-01-14 22:00] VITALS: BP 111/67
--- NOTE | 2021-01-14 22:49 | NUR ---
low blood sugar. noted pt still awake and talking 2 dex given, next check came up to 56. next check dropped again to 50, 2 more dex drinks given plus 1/2 ensure bottle. came up to 58. attempting SQ glucagon. will continue to monitor.
--- NOTE | 2021-01-14 23:24 | NUR ---
pt given glucgon SQ per MAY and offered juice. BS 149. pt awake and verbal. no s/s of hypoglycemia noed. Will cont to monitor
--- NOTE | 2021-01-15 00:30 | NUR ---
teletypesetter called - stated pt looks like he is having ST depression. requested EKG. completed - no change in EKG from last night. will notify MD to look at EKG. patient in no distress at this time. laughing with staff as test was completed.
[2021-01-15] MEDS ORDERED: insulin glargine (Lantus) pen - multi-dose SQ ONE (01:15)
--- NOTE | 2021-01-15 01:34 | NUR ---
Dr. kulkarni looked at EKG - orders for serial troponin's given. pt not in distress at this time. will continue to monitor.
[2021-01-15 02:00] VITALS: BP 115/53
[2021-01-15 02:40] LABS: GLUCOSE 253 MG/DL (70-104)
[2021-01-15 06:00] VITALS: BP 129/47
--- NOTE | 2021-01-15 06:45 | NUR ---
Patient in room [facility]TH[facility] 4020B. I have received report from SANTOS NEWTON and had the opportunity to ask questions and assume patient care.
[2021-01-15] MEDS: pantoprazole 40mg Tablet.DR PO SCH (07:30)
[2021-01-15] MEDS: methylPREDNISolone sod succ/PF 40mg inj. IV SCH ×2 (07:33→23:23)
[2021-01-15] MEDS: aspirin 81mg, enteric-coated 1 TAB TABLET.DR PO SCH (08:00)
[2021-01-15] MEDS: docusate sod 100mg capsule PO SCH ×2 (08:00→23:23)
[2021-01-15] MEDS: lactobacillus rhamnosus 10,000 MMU CELLS/CAPSULE PO SCH ×2 (08:00→23:23)
[2021-01-15] MEDS: lisinopril 5mg tablet PO SCH (08:00)
[2021-01-15] MEDS: lactose-reduced food (Ensure Enlive) - 237ml bottle PO SCH ×3 (08:00→18:48)
[2021-01-15] MEDS: gabapentin 300mg capsule PO SCH ×3 (08:00→23:23)
[2021-01-15] MEDS: cholecalciferol (vitamin D3) 1,000 unit (25mcg) tablet PO SCH (08:00)
[2021-01-15 08:41] LABS: ABG BASE EXCESS 2.7 mmol/L (-2.0-2.0); ABG HCO3 28.4 mmol/L (22.0-26.0); ABG OXYGEN SATURATION 91.4 % (94-97); ABG PCO2 (T) 45.6 mmHg (35.0-48.0); ABG PO2 (T) 58.3 mmHg (75.0-100.0); ALLEN'S TEST POSITIVE; FCOHb 0.3 % (0.0-3.9); FMetHb 0.4 % (0.0-1.5); FO2Hb 90.8 % (94-97); PATIENT TEMPERATURE 35.9; RESPIRATORY RATE 12 b/min; TOTAL HEMOGLOBIN 13.7 G/dl (14.0-18.0)
[2021-01-15 08:54] LABS: ALANINE AMINOTRANSFERASE 35 U/L (12-78); ALBUMIN 1.9 G/DL (3.4-5.0); ALBUMIN/GLOBULIN RATIO 0.4 (1.1-1.5); ALKALINE PHOSPHATASE 86 IU/L (46-116); ANION GAP 10 (8-16); ASPARTATE AMINO TRANSFERASE 36 U/L (10-37); BILIRUBIN,TOTAL 0.5 MG/DL (0.1-1.0); BLOOD UREA NITROGEN 41 MG/DL (7-18); BUN/CREATININE RATIO 38.3 (5.4-32.0); C-REACTIVE PROTEIN 3.25 MG/DL (0.0-0.5); CALCIUM 8.5 MG/DL (8.5-10.1); CHLORIDE 109 MMOL/L (99-107); CREATININE 1.07 MG/DL (0.60-1.10); GLUCOSE 93 MG/DL (70-104); POTASSIUM 4.4 MMOL/L (3.5-5.1); SODIUM 145 MMOL/L (135-145); TOTAL CARBON DIOXIDE 26.5 MMOL/L (24-32); TOTAL PROTEIN 6.2 G/DL (6.4-8.2); eGFR 68 ML/MIN
[2021-01-15 09:02] LABS: BASOPHILS % (AUTO) 0 % (0-1); EOSINOPHILS % (AUTO) 0.1 % (0-6); HEMATOCRIT 40.4 % (42.0-52.0); HEMOGLOBIN 13.5 g/dl (14.0-17.9); LYMPHOCYTES # (AUTO) 0.5 X10'3 (1.1-4.8); LYMPHOCYTES % (AUTO) 3.9 % (21-51); MEAN CORPUSCULAR HEMOGLOBIN 30.4 PG (27.0-31.0); MEAN CORPUSCULAR HGB CONC 33.3 g/dL (33.0-36.5); MEAN CORPUSCULAR VOLUME 91.2 FL (78-98); MEAN PLATELET VOLUME 9.3 FL (7.4-10.4); MONOCYTES # (AUTO) 0.3 X10'3 (0-0.9); MONOCYTES % (AUTO) 1.8 % (2-12); NEUTROPHILS # (AUTO) 13.2 X10'3 (1.8-7.7); NEUTROPHILS % (AUTO) 94.2 % (42-75); PLATELET COUNT 259 X10'3 (140-440); RED BLOOD COUNT 4.43 X10'6 (4.70-6.10); RED CELL DISTRIBUTION WIDTH 13.8 % (11.5-14.5)
[2021-01-15 09:18] LABS: D-DIMER 9.11 MG/L FEU (0-0.50)
[2021-01-15 10:00] VITALS: BP 120/59
[2021-01-15] MEDS: normal saline 1000ml 1,000 ML IV SCH (12:00)
[2021-01-15 14:00] VITALS: BP 110/59
[2021-01-15 18:00] VITALS: BP 117/55
--- NOTE | 2021-01-15 18:30 | NUR ---
Patient in room [facility]TH[facility] 4014. I have received report from Tamanna GRAHAM and had the opportunity to ask questions and assume patient care. Addendum: 01/16/21 at 0707 by Elvira Putnam RN Amended: Links added.
--- NOTE | 2021-01-15 18:45 | NUR ---
Problems reprioritized. Patient report given, questions answered & plan of care reviewed with SANTOS SANTANA.
--- NOTE | 2021-01-15 18:47 | NUR ---
PATIENT CATHETER WAS EMPTIED BY AIDE, NO AMT REPORTED
--- NOTE | 2021-01-15 19:50 | NUR ---
Pt. with retraction breathing on 6 L via n/c saturating at 79%; retraction breathing at this time -non rebreather mask applied on 100% sats 82%. Pt's pupils non reactive to light. COMMUNITY DEVELOPMENT OFFICER . at bedside at this time. VS Tem 99.4, RR 36HR 108, BP 108/59, 79% on [address] Polo BLACK notified. Addendum: 01/15/21 at 2006 by Elvira Putnam RN Amended: Links added. Addendum: 01/15/21 at 2012 by Elvira Putnam RN Please omit. Wrong pt.
[2021-01-15] MEDS: insulin glargine (Lantus) pen - multi-dose SQ SCH (21:00)
--- NOTE | 2021-01-15 21:00 | NUR ---
Pt. did not eat dinner and blood sugars were as follows: Am 01/15- 07 BS 99, noon BS 87, 1700- BS 110, and BS. Wong not given. Addendum: 01/16/21 at 0303 by Elvira Putnam RN Amended: Links added.
--- NOTE | 2021-01-15 21:15 | NUR ---
Pt. awake A & O and denies pain at this time. BIPAP in place with saturating at 90% at this time. F/c draining to gravity with adequate output noted in the collecting bag. Call light with reach and bed in lower position. Addendum: 01/16/21 at 0312 by Elvira Putnam RN Amended: Links added.
[2021-01-15 22:00] VITALS: BP 114/57
[2021-01-15] MEDS: atorvastatin 20mg tablet PO SCH (23:23)
[2021-01-15] MEDS: enoxaparin 60mg/0.6ml syringe SQ SCH (23:24)
[2021-01-16 02:00] VITALS: BP 108/59
[2021-01-16] MEDS: magnesium hydroxide 30ml (MOM) UD suspension PO PRN (05:36)
[2021-01-16 06:00] VITALS: BP_SYST 117; BP_SYST 127; BP_DIAS 64; BP_DIAS 73
--- NOTE | 2021-01-16 06:20 | NUR ---
Problems reprioritized. Patient report given, questions answered & plan of care reviewed with Cleo GRAHAM. Addendum: 01/16/21 at 0759 by Elvira Putnam RN Amended: Links added.
--- NOTE | 2021-01-16 06:57 | NUR ---
Patient in room [facility]TH[facility] 4020B. I have received report from SANTOS SANTANA and had the opportunity to ask questions and assume patient care.
[2021-01-16] MEDS: lactobacillus rhamnosus 10,000 MMU CELLS/CAPSULE PO SCH ×2 (07:43→19:41)
[2021-01-16] MEDS: enoxaparin 60mg/0.6ml syringe SQ SCH ×2 (07:43→19:42)
[2021-01-16] MEDS: pantoprazole 40mg Tablet.DR PO SCH (07:43)
[2021-01-16] MEDS: gabapentin 300mg capsule PO SCH ×3 (07:43→23:06)
[2021-01-16] MEDS: docusate sod 100mg capsule PO SCH ×2 (07:43→19:41)
[2021-01-16] MEDS: normal saline 1000ml 1,000 ML IV SCH (07:43)
[2021-01-16] MEDS: aspirin 81mg, enteric-coated 1 TAB TABLET.DR PO SCH (07:43)
[2021-01-16] MEDS: lisinopril 5mg tablet PO SCH (07:43)
[2021-01-16] MEDS: cholecalciferol (vitamin D3) 1,000 unit (25mcg) tablet PO SCH (07:44)
[2021-01-16] MEDS: methylPREDNISolone sod succ/PF 40mg inj. IV SCH ×2 (07:44→19:41)
--- NOTE | 2021-01-16 07:48 | NUR ---
Spoke to Dre family member to pt. regarding pt's condition- family member Iván wanted some update on the patient.. Addendum: 01/16/21 at 0780 by Elvira Putanm RN Amended: Links added.
[2021-01-16] MEDS: lactose-reduced food (Ensure Enlive) - 237ml bottle PO SCH ×3 (08:00→18:02)
--- NOTE | 2021-01-16 08:50 | NUR ---
Spoke with Adrian, Respiratory Therapist, he put pt on full face bipap mask (size large) due to breakdown on pt's nose. Will order wound consult and put wound photos in pt's chart.
--- NOTE | 2021-01-16 09:23 | NUR ---
Reassessment: Pt on BiPAP and continues w/ mostly 0% intake of meals on CCHO diet and avg 28% x7 ONS. Paged MD that pt may benefit from TF at this time given 11 days poor nutrition if within plan of care. LBM 01/11 receiving routine and PRN bowel care. Will continue to monitor for PO/ONS trends and additional nutrition intervention needs this admit. Rec: 1. liberalize to regular diet given documented PO hx; encourage PO. 2. Ensure Enlive TIDWM per MD; encourage PO 3. routine bowel care 4. scaled wt this admit; subsequent weekly wts 5. IF poor PO persists consider NG nutrition to optimize nutrition status this admit. IF TF Glucerna 1.2 at 55ml/hr goal 6. DM ed once more appropriate this admit; hx T2DM A1C 10.3% on no meds at home per EMR Addendum: 01/16/21 at [address] Amended: Links added.
[2021-01-16 09:25] LABS: BASOPHILS % (AUTO) 0.1 % (0-1); EOSINOPHILS % (AUTO) 0 % (0-6); HEMATOCRIT 38.6 % (42.0-52.0); HEMOGLOBIN 13.1 g/dl (14.0-17.9); LYMPHOCYTES # (AUTO) 0.3 X10'3 (1.1-4.8); LYMPHOCYTES % (AUTO) 2.1 % (21-51); MEAN CORPUSCULAR HEMOGLOBIN 30.6 PG (27.0-31.0); MEAN CORPUSCULAR HGB CONC 33.9 g/dL (33.0-36.5); MEAN CORPUSCULAR VOLUME 90.3 FL (78-98); MONOCYTES # (AUTO) 0.3 X10'3 (0-0.9); MONOCYTES % (AUTO) 2.4 % (2-12); NEUTROPHILS # (AUTO) 12.4 X10'3 (1.8-7.7); NEUTROPHILS % (AUTO) 95.4 % (42-75); PLATELET COUNT 236 X10'3 (140-440); RED BLOOD COUNT 4.28 X10'6 (4.70-6.10); RED CELL DISTRIBUTION WIDTH 13.4 % (11.5-14.5)
[2021-01-16 09:33] LABS: ALBUMIN 1.8 G/DL (3.4-5.0); ANION GAP 7 (8-16); BLOOD UREA NITROGEN 33 MG/DL (7-18); BUN/CREATININE RATIO 30.6 (5.4-32.0); CALCIUM 8.6 MG/DL (8.5-10.1); CHLORIDE 106 MMOL/L (99-107); CREATININE 1.08 MG/DL (0.60-1.10); GLUCOSE 72 MG/DL (70-104); POTASSIUM 4.5 MMOL/L (3.5-5.1); SODIUM 142 MMOL/L (135-145); TOTAL CARBON DIOXIDE 28.7 MMOL/L (24-32); eGFR 67 ML/MIN
[2021-01-16 18:00] VITALS: BP 116/59
--- NOTE | 2021-01-16 18:36 | NUR ---
Problems reprioritized. Patient report given, questions answered & plan of care reviewed with SANTOS GARCIA.
[2021-01-16] MEDS: insulin Lispro (HumaLOG) vial - multi-dose SQ SCH (19:46)
[2021-01-16] MEDS: insulin glargine (Lantus) pen - multi-dose SQ SCH (21:00)
[2021-01-16 22:00] VITALS: BP 121/65
--- NOTE | 2021-01-16 23:00 | NUR ---
Pt had not been given lantus past 2 nights. AM glu was 81. Paged Dr Cuellar to see what she wanted me to give. She ordered a one time dose of Lantus 6 units and we will begin adjusting again from there.
[2021-01-16] MEDS ORDERED: insulin glargine (Lantus) pen - multi-dose SQ ONE (23:05)
[2021-01-16] MEDS: atorvastatin 20mg tablet PO SCH (23:06)
[2021-01-17 02:00] VITALS: BP 116/62
[2021-01-17] MEDS: normal saline 1000ml 1,000 ML IV SCH (04:20)
[2021-01-17 06:00] VITALS: BP 127/64
--- NOTE | 2021-01-17 06:15 | NUR ---
Patient in room [facility]TH[facility] 4020B. I have received report from SANTOS GARCIA and had the opportunity to ask questions and assume patient care.
[2021-01-17] MEDS: lactose-reduced food (Ensure Enlive) - 237ml bottle PO SCH ×3 (08:00→17:48)
[2021-01-17 09:52] LABS: BASOPHILS % (AUTO) 0.1 % (0-1); EOSINOPHILS % (AUTO) 0.1 % (0-6); HEMATOCRIT 37.2 % (42.0-52.0); HEMOGLOBIN 12.5 g/dl (14.0-17.9); LYMPHOCYTES # (AUTO) 0.4 X10'3 (1.1-4.8); LYMPHOCYTES % (AUTO) 3.3 % (21-51); MEAN CORPUSCULAR HEMOGLOBIN 30.5 PG (27.0-31.0); MEAN CORPUSCULAR HGB CONC 33.6 g/dL (33.0-36.5); MEAN CORPUSCULAR VOLUME 90.8 FL (78-98); MEAN PLATELET VOLUME 10.2 FL (7.4-10.4); MONOCYTES # (AUTO) 0.3 X10'3 (0-0.9); MONOCYTES % (AUTO) 2.2 % (2-12); NEUTROPHILS # (AUTO) 11.3 X10'3 (1.8-7.7); NEUTROPHILS % (AUTO) 94.3 % (42-75); PLATELET COUNT 208 X10'3 (140-440); RED CELL DISTRIBUTION WIDTH 13.5 % (11.5-14.5); WHITE BLOOD COUNT 11.9 X10'3 (4.5-11.0)
[2021-01-17] MEDS: docusate sod 100mg capsule PO SCH ×2 (09:58→19:46)
[2021-01-17] MEDS: methylPREDNISolone sod succ/PF 40mg inj. IV SCH ×2 (09:58→19:46)
[2021-01-17] MEDS: gabapentin 300mg capsule PO SCH ×3 (09:59→21:46)
[2021-01-17] MEDS: cholecalciferol (vitamin D3) 1,000 unit (25mcg) tablet PO SCH (09:59)
[2021-01-17] MEDS: lactobacillus rhamnosus 10,000 MMU CELLS/CAPSULE PO SCH ×2 (09:59→19:46)
[2021-01-17] MEDS: lisinopril 5mg tablet PO SCH (09:59)
[2021-01-17] MEDS: aspirin 81mg, enteric-coated 1 TAB TABLET.DR PO SCH (09:59)
[2021-01-17] MEDS: enoxaparin 60mg/0.6ml syringe SQ SCH ×2 (09:59→19:46)
[2021-01-17 10:00] VITALS: BP 120/56
[2021-01-17] MEDS: pantoprazole 40mg Tablet.DR PO SCH (10:00)
[2021-01-17 10:05] LABS: ALANINE AMINOTRANSFERASE 37 U/L (12-78); ALBUMIN 1.6 G/DL (3.4-5.0); ALBUMIN/GLOBULIN RATIO 0.4 (1.1-1.5); ALKALINE PHOSPHATASE 82 IU/L (46-116); ANION GAP 6 (8-16); ASPARTATE AMINO TRANSFERASE 42 U/L (10-37); BILIRUBIN,TOTAL 0.6 MG/DL (0.1-1.0); BLOOD UREA NITROGEN 31 MG/DL (7-18); C-REACTIVE PROTEIN 11.29 MG/DL (0.0-0.5); CALCIUM 8.6 MG/DL (8.5-10.1); CHLORIDE 105 MMOL/L (99-107); GLUCOSE 119 MG/DL (70-104); POTASSIUM 4.1 MMOL/L (3.5-5.1); SODIUM 140 MMOL/L (135-145); TOTAL CARBON DIOXIDE 28.9 MMOL/L (24-32); eGFR 73 ML/MIN
[2021-01-17] MEDS: NUT.TX.GLUC.INTOLER,LAC-FR,SOY (GLUCERNA) 237 ML PO SCH ×2 (13:00→17:48)
[2021-01-17] MEDS: insulin Lispro (HumaLOG) vial - multi-dose SQ SCH ×3 (13:41→21:46)
[2021-01-17 14:00] VITALS: BP 109/50
[2021-01-17 18:00] VITALS: BP 121/58
--- NOTE | 2021-01-17 18:30 | NUR ---
Problems reprioritized. Patient report given, questions answered & plan of care reviewed with SANTOS Peter.
[2021-01-17] MEDS: insulin glargine (Lantus) pen - multi-dose SQ SCH (21:45)
[2021-01-17] MEDS: atorvastatin 20mg tablet PO SCH (21:46)
[2021-01-17 22:00] VITALS: BP 121/57
--- NOTE | 2021-01-17 22:00 | NUR ---
Lantus was re-started at 6 units [address] Gonzalez orders. Since am glu was 119, kept pt at 6 units tonight as well.
[2021-01-18] VITALS (15 sets, daily range): BP systolic 90–154; BP diastolic 40–90
--- NOTE | 2021-01-18 06:24 | NUR ---
Patient in room [facility]TH[facility] 4020b. I have received report from SANTOS Peter and had the opportunity to ask questions and assume patient care.
[2021-01-18 07:35] LABS: BASOPHILS % (AUTO) 0.2 % (0-1); EOSINOPHILS % (AUTO) 0 % (0-6); HEMATOCRIT 37.1 % (42.0-52.0); HEMOGLOBIN 12.5 g/dl (14.0-17.9); LYMPHOCYTES # (AUTO) 0.3 X10'3 (1.1-4.8); LYMPHOCYTES % (AUTO) 2.1 % (21-51); MEAN CORPUSCULAR HEMOGLOBIN 30.3 PG (27.0-31.0); MEAN CORPUSCULAR HGB CONC 33.6 g/dL (33.0-36.5); MEAN PLATELET VOLUME 10.9 FL (7.4-10.4); MONOCYTES # (AUTO) 0.2 X10'3 (0-0.9); MONOCYTES % (AUTO) 1.6 % (2-12); NEUTROPHILS # (AUTO) 14.9 X10'3 (1.8-7.7); NEUTROPHILS % (AUTO) 96.1 % (42-75); PLATELET COUNT 200 X10'3 (140-440); RED BLOOD COUNT 4.12 X10'6 (4.70-6.10); RED CELL DISTRIBUTION WIDTH 13.6 % (11.5-14.5); WHITE BLOOD COUNT 15.5 X10'3 (4.5-11.0)
[2021-01-18 07:55] LABS: D-DIMER 6.05 MG/L FEU (0-0.50)
[2021-01-18] MEDS: magnesium hydroxide 30ml (MOM) UD suspension PO PRN (08:00)
[2021-01-18] MEDS ORDERED: sod chloride 0.9% 10ml flush syringe IV ONE (08:00)
[2021-01-18] MEDS: enoxaparin 60mg/0.6ml syringe SQ SCH ×2 (08:00→20:55)
[2021-01-18] MEDS: lactose-reduced food (Ensure Enlive) - 237ml bottle PO SCH ×3 (08:00→18:00)
[2021-01-18] MEDS ORDERED: etomidate 2mg/ml inj. ONE (08:00)
[2021-01-18] MEDS: lactobacillus rhamnosus 10,000 MMU CELLS/CAPSULE PO SCH ×2 (08:01→20:55)
[2021-01-18] MEDS: aspirin 81mg, enteric-coated 1 TAB TABLET.DR PO SCH (08:01)
[2021-01-18] MEDS: gabapentin 300mg capsule PO SCH ×3 (08:01→20:55)
[2021-01-18] MEDS: docusate sod 100mg capsule PO SCH ×2 (08:01→20:00)
[2021-01-18] MEDS: methylPREDNISolone sod succ/PF 40mg inj. IV SCH ×2 (08:01→20:54)
[2021-01-18] MEDS: pantoprazole 40mg Tablet.DR PO SCH (08:01)
[2021-01-18] MEDS: cholecalciferol (vitamin D3) 1,000 unit (25mcg) tablet PO SCH (08:01)
[2021-01-18] MEDS: lisinopril 5mg tablet PO SCH (08:02)
[2021-01-18] MEDS: NUT.TX.GLUC.INTOLER,LAC-FR,SOY (GLUCERNA) 237 ML PO SCH ×3 (08:03→18:00)
[2021-01-18 08:13] LABS: GIANT PLATELET FEW; LARGE PLATELETS FEW; PLATELET ESTIMATE NORMAL
[2021-01-18 08:46] LABS: ALANINE AMINOTRANSFERASE 32 U/L (12-78); ALBUMIN 1.6 G/DL (3.4-5.0); ALBUMIN/GLOBULIN RATIO 0.4 (1.1-1.5); ALKALINE PHOSPHATASE 93 IU/L (46-116); ANION GAP 8 (8-16); ASPARTATE AMINO TRANSFERASE 39 U/L (10-37); BILIRUBIN,TOTAL 0.6 MG/DL (0.1-1.0); BLOOD UREA NITROGEN 34 MG/DL (7-18); BUN/CREATININE RATIO 31.2 (5.4-32.0); C-REACTIVE PROTEIN 7.72 MG/DL (0.0-0.5); CALCIUM 8.5 MG/DL (8.5-10.1); CHLORIDE 107 MMOL/L (99-107); CREATININE 1.09 MG/DL (0.60-1.10); GLUCOSE 100 MG/DL (70-104); LACTATE DEHYDROGENASE 682 U/L (85-227); PHOSPHORUS 4.1 MG/DL (2.3-4.5); POTASSIUM 4.4 MMOL/L (3.5-5.1); SODIUM 143 MMOL/L (135-145); TOTAL CARBON DIOXIDE 28.5 MMOL/L (24-32); TOTAL PROTEIN 5.9 G/DL (6.4-8.2); eGFR 66 ML/MIN
[2021-01-18] MEDS: insulin Lispro (HumaLOG) vial - multi-dose SQ SCH (09:43)
--- NOTE | 2021-01-18 10:01 | NUR ---
paged rapid response on pt Re: Barrie Olvera [id number] pt is satting in mid-70s, de-sats to upper 60s, can't get him above 80%. Can you come assess? Thank you
--- NOTE | 2021-01-18 10:03 | NUR ---
Page Sent PAGER ID: [phone] MESSAGE: Cleo [phone] Re: Barrie Olvera [id number] called rapid on pt because he is satting in mid to upper 70s and de-sats into upper 60s. RT just arrived. Thanks
[2021-01-18 10:27] LABS: ABG BASE EXCESS 1.4 mmol/L (-2.0-2.0); ABG HCO3 25.7 mmol/L (22.0-26.0); ABG OXYGEN SATURATION 71.8 % (94-97); ABG PCO2 (T) 39.6 mmHg (35.0-48.0); ABG PO2 (T) 37.7 mmHg (75.0-100.0); ALLEN'S TEST POSITIVE; FCOHb 0.1 % (0.0-3.9); FMetHb 0.3 % (0.0-1.5); FO2Hb 71.5 % (94-97); RESPIRATORY RATE 12 b/min; TOTAL HEMOGLOBIN 12.3 G/dl (14.0-18.0)
[2021-01-18] MEDS ORDERED: fentaNYL/PF 50MCG/1 ML 2ML syringe IV PRN (11:05)
[2021-01-18] MEDS ORDERED: midazolam 1 mg/ML 2ml injection IV ONE (11:05)
[2021-01-18] MEDS ORDERED: ipratropium/albuterol 3ml nebule NEB PRN (11:05)
--- NOTE | 2021-01-18 11:10 | NUR ---
Patient intubated at bedside. 20mg of etomidate given, 6mg of versed given for intubation.
[2021-01-18] MEDS ORDERED: midazolam 1 mg/ML 2ml injection ONE (11:12)
--- NOTE | 2021-01-18 11:47 | NUR ---
took pt down to icu at 1100
[2021-01-18] MEDS ORDERED: NORepinephrine 8mg/ 250ml NS 250 ML IV ONE (11:49)
[2021-01-18] MEDS: FENTANYL-0.9 % NACL/PF 100 ML IV PRN ×3 (11:55→21:36)
[2021-01-18] MEDS: midazolam 100mg in NS 100ml 100 ML IV PRN ×3 (11:56→21:35)
--- NOTE | 2021-01-18 12:30 | NUR ---
Called richard Domingo, to update on pt's condition and transfer to ICU.
[2021-01-18 13:24] LABS: ABG BASE EXCESS -1.3 mmol/L (-2.0-2.0); ABG HCO3 24.4 mmol/L (22.0-26.0); ABG OXYGEN SATURATION 87.7 % (94-97); ABG PCO2 (T) 44.8 mmHg (35.0-48.0); ABG PO2 (T) 60.4 mmHg (75.0-100.0); FCOHb 0.3 % (0.0-3.9); FMetHb 0.3 % (0.0-1.5); FO2Hb 87.2 % (94-97); PEEP 15 cm H2O; RESPIRATORY RATE 20 b/min; TIDAL VOLUME 400 mL; TOTAL HEMOGLOBIN 12.7 G/dl (14.0-18.0)
--- NOTE | 2021-01-18 13:29 | NUR ---
TF consult: Pt s/p rapid response this morning and ultimately intubated, see TF recommendations below. IBW was used to calculated estimated nutrient needs as current documented wt isn't scaled. Prior to intubation pt with mostly 100% PO intake of ONS since 01/16 though with 0% PO intake of meals since dinner 01/15 to lunch 01/17, which then improved to 25-50% PO intake of meals. Overall likely not meeting estimated nutrient needs. LBM 01/16 per I&O, documented as small. Last moderate BM was 01/11 per EMR. Pt receiving routine Colace with PRN MoM available given 01/16 and 01/18. Will continue to follow closely. Recommendations: 1. Continuous TF using Vital AF with 58 mL/hr goal rate to provide 1392 mL total volume/day, 1670 kcal, 104 g protein, and 1129 mL water 2. Monitor for a scaled weight and adjust TF recommendations as appropriate 3. Additional 200 mL water flush Q4H; monitor serum Na 4. Prealbumin q Sunday/ 5. Daily scaled weight 6. Advance to regular diet as medically indicated following extubation given poor PO intake hx; CHO controlled diet if pt with adequate PO intake 7. DM ed once appropriate following extubation; hx T2DM A1C 10.3% on no meds at home per EMR Addendum: 01/18/21 at [address] Amended: Links added.
--- NOTE | 2021-01-18 14:46 | NUR ---
Received report from ortho nurse Cleo GRAHAM.
--- NOTE | 2021-01-18 14:47 | NUR ---
gave report to ICU nurse, SANTOS Gallo
[2021-01-18] MEDS: normal saline 1000ml 1,000 ML IV SCH (15:21)
[2021-01-18] MEDS: ipratropium/albuterol 3ml nebule NEB SCH ×3 (15:26→22:57)
[2021-01-18] MEDS ORDERED: normal saline 1000ml 1,000 ML IV ONE ×2 (15:50→20:40)
--- NOTE | 2021-01-18 18:21 | NUR ---
Problems reprioritized. Patient report given, questions answered & plan of care reviewed with Faid GRAHAM.
[2021-01-18] MEDS: famotidine/PF 10 mg/ml inj IV SCH (20:54)
[2021-01-18] MEDS: atorvastatin 20mg tablet PO SCH (20:54)
[2021-01-18] MEDS: insulin glargine (Lantus) pen - multi-dose SQ SCH (21:00)
[2021-01-19] VITALS (23 sets, daily range): BP systolic 87–142; BP diastolic 41–59
[2021-01-19] MEDS: normal saline 1000ml 1,000 ML IV SCH ×5 (00:20→21:12)
[2021-01-19] MEDS: ipratropium/albuterol 3ml nebule NEB SCH ×6 (02:31→23:35)
[2021-01-19 02:47] LABS: ABG BASE EXCESS -2.7 mmol/L (-2.0-2.0); ABG HCO3 23.8 mmol/L (22.0-26.0); ABG OXYGEN SATURATION 94.4 % (94-97); ABG PCO2 (T) 48.9 mmHg (35.0-48.0); ABG PO2 (T) 80.6 mmHg (75.0-100.0); FCOHb 0.3 % (0.0-3.9); FMetHb 0.3 % (0.0-1.5); FO2Hb 93.8 % (94-97); PEEP 15 cm H2O; RESPIRATORY RATE 20 b/min; TIDAL VOLUME 400 mL; TOTAL HEMOGLOBIN 12.2 G/dl (14.0-18.0)
[2021-01-19 02:51] LABS: BASOPHILS % (AUTO) 0.1 % (0-1); EOSINOPHILS % (AUTO) 0 % (0-6); HEMATOCRIT 32.1 % (42.0-52.0); HEMOGLOBIN 10.7 g/dl (14.0-17.9); LYMPHOCYTES # (AUTO) 0.1 X10'3 (1.1-4.8); LYMPHOCYTES % (AUTO) 0.8 % (21-51); MEAN CORPUSCULAR HEMOGLOBIN 30.5 PG (27.0-31.0); MEAN CORPUSCULAR HGB CONC 33.2 g/dL (33.0-36.5); MEAN CORPUSCULAR VOLUME 91.7 FL (78-98); MEAN PLATELET VOLUME 10.5 FL (7.4-10.4); MONOCYTES # (AUTO) 0.2 X10'3 (0-0.9); MONOCYTES % (AUTO) 1.4 % (2-12); NEUTROPHILS # (AUTO) 14.3 X10'3 (1.8-7.7); NEUTROPHILS % (AUTO) 97.7 % (42-75); PLATELET COUNT 187 X10'3 (140-440); RED CELL DISTRIBUTION WIDTH 13.4 % (11.5-14.5); WHITE BLOOD COUNT 14.6 X10'3 (4.5-11.0)
[2021-01-19] MEDS: FENTANYL-0.9 % NACL/PF 100 ML IV PRN ×3 (03:06→20:16)
[2021-01-19 03:18] LABS: D-DIMER 7.61 MG/L FEU (0-0.50)
[2021-01-19 03:22] LABS: ALANINE AMINOTRANSFERASE 30 U/L (12-78); ALBUMIN 1.4 G/DL (3.4-5.0); ALBUMIN/GLOBULIN RATIO 0.4 (1.1-1.5); ALKALINE PHOSPHATASE 98 IU/L (46-116); ANION GAP 7 (8-16); ASPARTATE AMINO TRANSFERASE 31 U/L (10-37); BILIRUBIN,TOTAL 0.4 MG/DL (0.1-1.0); BLOOD UREA NITROGEN 35 MG/DL (7-18); BUN/CREATININE RATIO 31.5 (5.4-32.0); C-REACTIVE PROTEIN 8.67 MG/DL (0.0-0.5); CALCIUM 7.4 MG/DL (8.5-10.1); CHLORIDE 109 MMOL/L (99-107); CREATININE 1.11 MG/DL (0.60-1.10); GLUCOSE 230 MG/DL (70-104); MAGNESIUM 1.8 MG/DL (1.5-2.4); PHOSPHORUS 3.7 MG/DL (2.3-4.5); POTASSIUM 4.9 MMOL/L (3.5-5.1); SODIUM 141 MMOL/L (135-145); TOTAL CARBON DIOXIDE 24.7 MMOL/L (24-32); TOTAL PROTEIN 5.2 G/DL (6.4-8.2); eGFR 65 ML/MIN
[2021-01-19 03:41] LABS: LACTATE DEHYDROGENASE 393 U/L (85-227)
[2021-01-19] MEDS: midazolam 100mg in NS 100ml 100 ML IV PRN ×2 (06:04→14:34)
[2021-01-19] MEDS: lactobacillus rhamnosus 10,000 MMU CELLS/CAPSULE PO SCH ×2 (09:02→21:11)
[2021-01-19] MEDS: docusate sod 100mg capsule PO SCH ×2 (09:03→21:11)
[2021-01-19] MEDS: enoxaparin 60mg/0.6ml syringe SQ SCH ×2 (09:03→21:13)
[2021-01-19] MEDS: gabapentin 300mg capsule PO SCH ×3 (09:04→21:11)
[2021-01-19] MEDS: methylPREDNISolone sod succ/PF 40mg inj. IV SCH ×2 (09:04→21:11)
[2021-01-19] MEDS: cholecalciferol (vitamin D3) 1,000 unit (25mcg) tablet PO SCH (09:04)
[2021-01-19] MEDS: famotidine/PF 10 mg/ml inj IV SCH ×2 (09:05→21:11)
[2021-01-19] MEDS: lisinopril 5mg tablet PO SCH (09:05)
[2021-01-19] MEDS: aspirin 81mg, enteric-coated 1 TAB TABLET.DR PO SCH (09:06)
[2021-01-19] MEDS: insulin regular, human U-100 3ml vial - multi-dose SQ SCH ×3 (10:04→21:49)
[2021-01-19] MEDS ORDERED: normal saline 1000ml 1,000 ML IV SCH ×3 (10:30→15:35)
[2021-01-19] MEDS: mineral oil/petrolatum ophthal oint EACHEYE SCH ×2 (13:49→20:00)
[2021-01-19] MEDS: atorvastatin 20mg tablet PO SCH (21:11)
[2021-01-19] MEDS: insulin glargine (Lantus) pen - multi-dose SQ SCH (21:50)
[2021-01-20] VITALS (24 sets, daily range): BP systolic 69–132; BP diastolic 34–120
[2021-01-20] MEDS: mineral oil/petrolatum ophthal oint EACHEYE SCH ×4 (01:45→20:00)
[2021-01-20] MEDS: NORepinephrine 8mg/ 250ml NS 250 ML IV SCH ×3 (01:45→21:46)
[2021-01-20] MEDS: FENTANYL-0.9 % NACL/PF 100 ML IV PRN ×5 (02:12→21:42)
[2021-01-20] MEDS: insulin regular, human U-100 3ml vial - multi-dose SQ SCH ×4 (02:32→23:33)
[2021-01-20 03:21] LABS: BASOPHILS # (AUTO) 0.1 X10'3 (0-0.2); BASOPHILS % (AUTO) 0.3 % (0-1); EOSINOPHILS % (AUTO) 0 % (0-6); HEMATOCRIT 28.1 % (42.0-52.0); HEMOGLOBIN 9.1 g/dl (14.0-17.9); LYMPHOCYTES # (AUTO) 0.1 X10'3 (1.1-4.8); LYMPHOCYTES % (AUTO) 0.6 % (21-51); MEAN CORPUSCULAR HEMOGLOBIN 30.2 PG (27.0-31.0); MEAN CORPUSCULAR HGB CONC 32.5 g/dL (33.0-36.5); MEAN PLATELET VOLUME 10.5 FL (7.4-10.4); MONOCYTES # (AUTO) 0.3 X10'3 (0-0.9); MONOCYTES % (AUTO) 1.4 % (2-12); NEUTROPHILS # (AUTO) 22.7 X10'3 (1.8-7.7); NEUTROPHILS % (AUTO) 97.7 % (42-75); PLATELET COUNT 147 X10'3 (140-440); RED BLOOD COUNT 3.02 X10'6 (4.70-6.10); RED CELL DISTRIBUTION WIDTH 13.4 % (11.5-14.5); WHITE BLOOD COUNT 23.2 X10'3 (4.5-11.0)
[2021-01-20] MEDS: ipratropium/albuterol 3ml nebule NEB SCH ×6 (03:29→23:01)
[2021-01-20 03:39] LABS: ABG BASE EXCESS -5.9 mmol/L (-2.0-2.0); ABG HCO3 20.5 mmol/L (22.0-26.0); ABG OXYGEN SATURATION 90.4 % (94-97); ABG PCO2 (T) 42.7 mmHg (35.0-48.0); ABG PO2 (T) 59.3 mmHg (75.0-100.0); FCOHb 0.3 % (0.0-3.9); FMetHb 0.2 % (0.0-1.5); FO2Hb 89.9 % (94-97); PATIENT TEMPERATURE 36.4; PEEP 15 cm H2O; RESPIRATORY RATE 20 b/min; TIDAL VOLUME 400 mL; TOTAL HEMOGLOBIN 11.1 G/dl (14.0-18.0)
[2021-01-20 03:40] LABS: ALANINE AMINOTRANSFERASE 24 U/L (12-78); ALBUMIN/GLOBULIN RATIO 0.3 (1.1-1.5); ALKALINE PHOSPHATASE 61 IU/L (46-116); ANION GAP 9 (8-16); ASPARTATE AMINO TRANSFERASE 18 U/L (10-37); BILIRUBIN,TOTAL 0.3 MG/DL (0.1-1.0); BLOOD UREA NITROGEN 30 MG/DL (7-18); BUN/CREATININE RATIO 31.9 (5.4-32.0); C-REACTIVE PROTEIN 10.48 MG/DL (0.0-0.5); CALCIUM 6.2 MG/DL (8.5-10.1); CHLORIDE 116 MMOL/L (99-107); CREATININE 0.94 MG/DL (0.60-1.10); GLUCOSE 212 MG/DL (70-104); LACTATE DEHYDROGENASE 326 U/L (85-227); MAGNESIUM 1.6 MG/DL (1.5-2.4); PHOSPHORUS 1.4 MG/DL (2.3-4.5); POTASSIUM 3.9 MMOL/L (3.5-5.1); PREALBUMIN 7.6 MG/DL (19-36); SODIUM 144 MMOL/L (135-145); TOTAL CARBON DIOXIDE 18.9 MMOL/L (24-32); TOTAL PROTEIN 4.2 G/DL (6.4-8.2); eGFR 78 ML/MIN
[2021-01-20] MEDS ORDERED: magnesium 2GM in 50ml NS 50 ML IV ONE (04:30)
[2021-01-20] MEDS ORDERED: CISatracurium besylate inj. 100 MG in normal saline 100ml IV soln 90 ML IV PRN ×2 (04:30→09:25)
[2021-01-20] MEDS: midazolam 100mg in NS 100ml 100 ML IV PRN ×4 (05:42→20:15)
[2021-01-20] MEDS: gabapentin 300mg capsule PO SCH ×3 (09:02→21:04)
[2021-01-20] MEDS: lactobacillus rhamnosus 10,000 MMU CELLS/CAPSULE PO SCH ×2 (09:02→20:53)
[2021-01-20] MEDS: docusate sod 100mg capsule PO SCH ×2 (09:02→20:53)
[2021-01-20] MEDS: methylPREDNISolone sod succ/PF 40mg inj. IV SCH ×2 (09:02→21:05)
[2021-01-20] MEDS: famotidine/PF 10 mg/ml inj IV SCH ×2 (09:02→20:53)
[2021-01-20] MEDS: cholecalciferol (vitamin D3) 1,000 unit (25mcg) tablet PO SCH (09:03)
[2021-01-20] MEDS: enoxaparin 60mg/0.6ml syringe SQ SCH ×2 (09:03→20:54)
[2021-01-20] MEDS: aspirin 81mg, enteric-coated 1 TAB TABLET.DR PO SCH (09:04)
[2021-01-20] MEDS ORDERED: CISatracurium **Bolus** 2 mg/ml inj IV PRN (09:25)
[2021-01-20] MEDS: normal saline 1000ml 1,000 ML IV SCH ×3 (10:00→12:37)
[2021-01-20] MEDS: vancomycin/NS 1 GM ADD-VANTAGE 250 ML IV SCH (13:39)
[2021-01-20] MEDS ORDERED: normal saline 1000ml 1,000 ML IV ONE ×2 (16:05→17:00)
[2021-01-20] MEDS: CISatracurium besylate inj. 100 MG in normal saline 100ml IV soln 90 ML IV PRN ×2 (16:43→21:41)
[2021-01-20] MEDS: piperacillin/tazo 4.5gm/100ml 100 ML IV SCH (16:55)
[2021-01-20] MEDS: atorvastatin 20mg tablet PO SCH (20:53)
[2021-01-20] MEDS: insulin glargine (Lantus) pen - multi-dose SQ SCH (21:00)
[2021-01-20] MEDS ORDERED: vasopressin inj. 40 UNIT in dextrose 5%-water 50ml 38 ML IV SCH (21:25)
[2021-01-21] VITALS (13 sets, daily range): BP systolic 0–135; BP diastolic 0–59
[2021-01-21] MEDS: NORepinephrine inj. 32 MG in normal saline 250ml IV soln 218 ML IV SCH ×2 (00:08→07:19)
[2021-01-21] MEDS: vancomycin/NS 1 GM ADD-VANTAGE 250 ML IV SCH (00:13)
[2021-01-21 00:42] LABS: ABG BASE EXCESS -17.6 mmol/L (-2.0-2.0); ABG HCO3 15.3 mmol/L (22.0-26.0); ABG OXYGEN SATURATION 62.3 % (94-97); ABG PCO2 (T) 72.3 mmHg (35.0-48.0); ABG PO2 (T) 32.8 mmHg (75.0-100.0); FCOHb 0.5 % (0.0-3.9); FMetHb 0.2 % (0.0-1.5); FO2Hb 61.9 % (94-97); PEEP 15 cm H2O; RESPIRATORY RATE 20 b/min; TIDAL VOLUME 400 mL; TOTAL HEMOGLOBIN 12.9 G/dl (14.0-18.0)
[2021-01-21] MEDS ORDERED: sodium bicarbonate (8.4%) 1 mEq/ml syringe IV ONE (00:45)
[2021-01-21] MEDS ORDERED: sodium bicarbonate (8.4%) inj. 150 MEQ in dextrose 5%-water 1,000 ML IV SCH (00:45)
[2021-01-21] MEDS ORDERED: fentaNYL/PF inj 2,500 MCG in normal saline 250ml IV soln 200 ML IV PRN (01:40)
[2021-01-21] MEDS: mineral oil/petrolatum ophthal oint EACHEYE SCH ×2 (02:07→08:08)
[2021-01-21] MEDS: FENTANYL-0.9 % NACL/PF 100 ML IV PRN (02:08)
[2021-01-21] MEDS: midazolam 100mg in NS 100ml 100 ML IV PRN ×2 (02:08→05:42)
[2021-01-21] MEDS: ipratropium/albuterol 3ml nebule NEB SCH ×2 (02:52→07:43)
[2021-01-21 03:09] LABS: ABG BASE EXCESS -15.3 mmol/L (-2.0-2.0); ABG HCO3 16.3 mmol/L (22.0-26.0); ABG OXYGEN SATURATION 50.1 % (94-97); ABG PCO2 (T) 61.2 mmHg (35.0-48.0); ABG PO2 (T) < 28.0 mmHg (75.0-100.0); FCOHb 0.8 % (0.0-3.9); FMetHb 0.2 % (0.0-1.5); FO2Hb 49.6 % (94-97); PATIENT TEMPERATURE 35.4; PEEP 15 cm H2O; RESPIRATORY RATE 26 b/min; TIDAL VOLUME 400 mL; TOTAL HEMOGLOBIN 13.5 G/dl (14.0-18.0)
[2021-01-21] MEDS ORDERED: epiNEPHrine inj 5 MG in normal saline 250ml IV soln 245 ML IV SCH (03:20)
[2021-01-21 03:22] LABS: ALANINE AMINOTRANSFERASE 21 U/L (12-78); ALBUMIN 0.6 G/DL (3.4-5.0); ALBUMIN/GLOBULIN RATIO 0.2 (1.1-1.5); ALKALINE PHOSPHATASE 59 IU/L (46-116); ANION GAP 10 (8-16); ASPARTATE AMINO TRANSFERASE 34 U/L (10-37); BILIRUBIN,TOTAL 0.3 MG/DL (0.1-1.0); BLOOD UREA NITROGEN 34 MG/DL (7-18); BUN/CREATININE RATIO 23.4 (5.4-32.0); C-REACTIVE PROTEIN 17.62 MG/DL (0.0-0.5); CHLORIDE 119 MMOL/L (99-107); CREATININE 1.45 MG/DL (0.60-1.10); GLUCOSE 160 MG/DL (70-104); LACTATE DEHYDROGENASE 355 U/L (85-227); MAGNESIUM 1.7 MG/DL (1.5-2.4); PHOSPHORUS 2.4 MG/DL (2.3-4.5); POTASSIUM 3.3 MMOL/L (3.5-5.1); SODIUM 145 MMOL/L (135-145); TOTAL CARBON DIOXIDE 16.5 MMOL/L (24-32); TOTAL PROTEIN 3.6 G/DL (6.4-8.2); eGFR 48 ML/MIN
[2021-01-21 03:25] LABS: D-DIMER 16.98 MG/L FEU (0-0.50)
[2021-01-21 03:36] LABS: CALCIUM 5.6 MG/DL (8.5-10.1); EOSINOPHILS % (AUTO) 0.1 % (0-6); HEMOGLOBIN 11.6 g/dl (14.0-17.9); LYMPHOCYTES # (AUTO) 0.2 X10'3 (1.1-4.8); NEUTROPHILS # (AUTO) 3.9 X10'3 (1.8-7.7)
[2021-01-21 03:39] LABS: BASOPHILS % (AUTO) 0.3 % (0-1); HEMATOCRIT 35.4 % (42.0-52.0); LYMPHOCYTES % (AUTO) 5.1 % (21-51); MEAN CORPUSCULAR HGB CONC 32.7 g/dL (33.0-36.5); MEAN CORPUSCULAR VOLUME 94.5 FL (78-98); MEAN PLATELET VOLUME 10.5 FL (7.4-10.4); MONOCYTES # (AUTO) 0.1 X10'3 (0-0.9); MONOCYTES % (AUTO) 1.5 % (2-12); PLATELET COUNT 89 X10'3 (140-440); RED BLOOD COUNT 3.75 X10'6 (4.70-6.10); RED CELL DISTRIBUTION WIDTH 13.9 % (11.5-14.5); WHITE BLOOD COUNT 4.2 X10'3 (4.5-11.0)
[2021-01-21 04:20] LABS: TOTAL CELLS COUNTED 100
[2021-01-21 04:21] LABS: GIANT PLATELET FEW; LARGE PLATELETS FEW; PLATELET ESTIMATE DECREASED
[2021-01-21 04:22] LABS: BURR CELLS 1+
[2021-01-21] MEDS: CISatracurium besylate inj. 100 MG in normal saline 100ml IV soln 90 ML IV PRN (04:28)
[2021-01-21] MEDS: normal saline 1000ml 1,000 ML IV SCH (07:35)
[2021-01-21 07:40] LABS: ABG BASE EXCESS -20.1 mmol/L (-2.0-2.0); ABG OXYGEN SATURATION 39.3 % (94-97); ABG PCO2 (T) 77.6 mmHg (35.0-48.0); ABG PO2 (T) < 28.0 mmHg (75.0-100.0); FCOHb 0.6 % (0.0-3.9); FMetHb 0.2 % (0.0-1.5); PATIENT TEMPERATURE 37.4; PEEP 16 cm H2O; RESPIRATORY RATE 26 b/min; TIDAL VOLUME 400 mL
[2021-01-21] MEDS ORDERED: vancomycin/NS 1 GM ADD-VANTAGE 250 ML IV PRN (07:45)
[2021-01-21] MEDS: docusate sod 100mg capsule PO SCH (08:00)
[2021-01-21] MEDS: famotidine/PF 10 mg/ml inj IV SCH (08:05)
[2021-01-21] MEDS: methylPREDNISolone sod succ/PF 40mg inj. IV SCH (08:05)
[2021-01-21] MEDS: piperacillin/tazo 4.5gm/100ml 100 ML IV SCH ×2 (08:05)
[2021-01-21] MEDS: enoxaparin 60mg/0.6ml syringe SQ SCH (08:05)
[2021-01-21] MEDS: gabapentin 300mg capsule PO SCH (08:08)
[2021-01-21] MEDS: lactobacillus rhamnosus 10,000 MMU CELLS/CAPSULE PO SCH (08:08)
[2021-01-21] MEDS: cholecalciferol (vitamin D3) 1,000 unit (25mcg) tablet PO SCH (08:08)
[2021-01-21] MEDS: aspirin 81mg, enteric-coated 1 TAB TABLET.DR PO SCH (08:08)
[2021-01-21] MEDS ORDERED: epiNEPHrine 1 mg/ml 30ml MDV ONE (08:15)
--- NOTE | 2021-01-21 08:45 | NUR ---
Patient's sats became unreadable. ABG obtained. pH 6.88 pCO2 76.3 pO2 24.4 HCO3 14.0. Results called to Dr. Uribe. CXR done. With minimal moving of patient, patient's HR and BP dropped precipitously. Patient lost pulse. Abe Max called. See Abe Max record. Nieces at bedside prior to and during Abe Max.
[2021-01-21] MEDS ORDERED: atropine 0.1mg/ml 10ml syringe ONE (10:00)
[2021-01-21] MEDS ORDERED: epiNEPHrine 0.1mg/ml 10ml syringe ONE (10:00)
[2021-01-21] MEDS ORDERED: calcium chloride 100 MG/1 ML inj IV ONE (10:00)
[2021-01-21] MEDS ORDERED: sod chloride 0.9% 10ml flush syringe IV ONE (10:00)
[2021-01-21] MEDS ORDERED: VANCOMYCIN LEVEL IV ONE (23:30)
[2021-01-22] MEDS ORDERED: VANCOMYCIN LEVEL IV SCH (03:00)
== END 2021-01-21 15:38 | DRG 208 ==
LOC: ORTHO 4S 20:01 → UNDOADMIN 20:01 → ORTHO 4S 01-04 00:02 → CICU 2S 01-18 11:00
PROVIDERS: ADMIT Family Medicine; ATTEND Internal Medicine
PROC: 5A0935A Assistance with Respiratory Ventilation, Less than 24 Consecutive Hours, High Flow/Velocity Cannula (ICD-10-PCS; 2021-01-04)
PROC: XW033E5 Introduction of Remdesivir Anti-infective into Peripheral Vein, Percutaneous Approach, New Technology Group 5 (ICD-10-PCS; 2021-01-05)
PROC: 5A0945A Assistance with Respiratory Ventilation, 24-96 Consecutive Hours, High Flow/Velocity Cannula (ICD-10-PCS; 2021-01-05)
PROC: 5A0935A Assistance with Respiratory Ventilation, Less than 24 Consecutive Hours, High Flow/Velocity Cannula (ICD-10-PCS; 2021-01-08)
PROC: 5A0935A Assistance with Respiratory Ventilation, Less than 24 Consecutive Hours, High Flow/Velocity Cannula (ICD-10-PCS; 2021-01-09)
PROC: 5A0935A Assistance with Respiratory Ventilation, Less than 24 Consecutive Hours, High Flow/Velocity Cannula (ICD-10-PCS; 2021-01-10)
PROC: 5A09557 Assistance with Respiratory Ventilation, Greater than 96 Consecutive Hours, Continuous Positive Airway Pressure (ICD-10-PCS; 2021-01-11)
PROC: 5A0935A Assistance with Respiratory Ventilation, Less than 24 Consecutive Hours, High Flow/Velocity Cannula (ICD-10-PCS; 2021-01-11)
PROC: 5A1945Z Respiratory Ventilation, 24-96 Consecutive Hours (ICD-10-PCS; principal; 2021-01-18)
PROC: 0BH17EZ Insertion of Endotracheal Airway into Trachea, Via Natural or Artificial Opening (ICD-10-PCS; 2021-01-18)
PROC: 5A12012 Performance of Cardiac Output, Single, Manual (ICD-10-PCS; 2021-01-21)
DX: U07.1 COVID-19 (principal); J12.82 Pneumonia due to coronavirus disease 2019; J15.9 Unspecified bacterial pneumonia; J96.01 Acute respiratory failure with hypoxia; I13.0 Hypertensive heart and chronic kidney disease with heart failure and stage 1 through stage 4 chronic kidney disease, or unspecified chronic kidney disease; N17.9 Acute kidney failure, unspecified; G93.40 Encephalopathy, unspecified; R57.9 Shock, unspecified; E11.22 Type 2 diabetes mellitus with diabetic chronic kidney disease; N18.9 Chronic kidney disease, unspecified; I50.9 Heart failure, unspecified; D72.810 Lymphocytopenia; E11.40 Type 2 diabetes mellitus with diabetic neuropathy, unspecified; E78.5 Hyperlipidemia, unspecified; R19.7 Diarrhea, unspecified; Z79.899 Other long term (current) drug therapy; Z79.82 Long term (current) use of aspirin
CPT/HCPCS: 36415; 36600; 71045; 80048; 80053; 80061; 81001; 82803; 82947; 82948; 83036; 83615; 83735; 83880; 84100; 84134; 84145; 84484; 85007; 85008; 85018; 85025; 85379; 85610; 85730; 86140; 87040; 87070; 87077; 87081; 87186; 92950; 93005; 93306; 94002; 94003; 94640; 94660; 94760; 94799; 97110; 97161; 97530; G0378; J0171; J0456; J0461; J0696; J1100; J1610; J1650; J1815; J2060; J2250; J2270; J2405; J2543; J2920; J3010; J3370; J3475; J3490; J7030; J7050; J7060